=== PATIENT | male | born 1965 | race Caucasian/White ===

== ENCOUNTER 2017-02-21 18:22 | Emergency (ER) | payer BC ==
[2017-02-21 18:30] VITALS: BP 139/81; PULSE 75; O2SAT 97
--- NOTE | 2017-02-21 18:52 | ERPHSYRPT ---
- History of Present Illness Time Seen by Provider: 02/21/17 18:47 Source: patient Exam Limitations: no limitations Patient Subjective Stated Complaint: productive cough Triage Nursing Assessment: yellow productive cough for 3 days. no fever. clear nasal drainage. generalized body aches. bilat ear 'fullness' lungs clear Physician History: pt is 51 year old male with 5 day history of productive cough, exposed to pneumonia by other family member, declines flu and strep swabs and x-ray after discussion and this is reasonable; lungs with some upper air sounds , no N or V pt wishes to proceed with ab after risk and benefit discussion. Timing/Duration: day(s) Cough Quality/Degree: moderate, productive cough, sputum Possible Cause: no prior episodes Modifying Factors: Improves With: coughing Associated Symptoms: cough, nasal drainage, sinus infection, sore throat International travel in last 2 weeks: No Allergies/Adverse Reactions: No Known Drug Allergies Allergy (Verified 02/21/17 18:29) Home Medications: Metformin HCl 500 mg [Glucophage 500 MG] 1,000 mg PO BID 02/26/14 [History ] Aspirin 81 mg PO DAILY 02/21/17 [History] Lisinopril/Hydrochlorothiazide [Lisinopril-Hctz 20-12.5 mg Tab] 1 each PO DAILY 02/21/17 [History] Ranitidine HCl 75 mg PO BID 02/21/17 [History] Hx Tetanus, Diphtheria Vaccination/Date Given: Yes Hx Influenza Vaccination/Date Given: No Hx Pneumococcal Vaccination/Date Given: No Immunizations Up to Date: Yes - Review of Systems Constitutional: No Fever, No Chills Eyes: No Symptoms Ears, Nose, & Throat: No Symptoms Respiratory: Cough, No Dyspnea, No Dyspnea on Exertion ([place]), No Stridor, No Wheezing Cardiac: No Chest Pain, No Edema, No Syncope, No Orthopnea, No PND Abdominal/Gastrointestinal: No Abdominal Pain, No Nausea, No Vomiting, No Diarrhea Genitourinary Symptoms: No Dysuria Musculoskeletal: Myalgias (mild not like flu per pt. ), No Back Pain, No Neck Pain Skin: No Rash Neurological: No Dizziness, No Focal Weakness, No Sensory Changes Psychological: No Symptoms Endocrine: No Symptoms All Other Systems: Reviewed and Negative - Past Medical History Pertinent Past Medical History: Yes Neurological History: No Pertinent History ENT History: No Pertinent History Cardiac History: Hypertension Respiratory History: No Pertinent History Endocrine Medical History: Diabetes Type II Musculoskeletal History: No Pertinent History GI Medical History: No Pertinent History History: No Pertinent History Psycho-Social History: No Pertinent History Male Reproductive Disorders: No Pertinent History Other Medical History: KIDNEY STONE - Past Surgical History Past Surgical History: Yes Neuro Surgical History: No Pertinent History Cardiac: No Pertinent History Respiratory: No Pertinent History Gastrointestinal: Cholecystectomy Genitourinary: No Pertinent History Musculoskeletal: Orthopedic Surgery Male Surgical History: No Pertinent History Other Surgical History: bone spur in lower right leg - Social History Smoking Status: Smoker, status unknown How long have you smoked: 30 Exposure to second hand smoke: No Drug Use: none Patient Lives Alone: No Significant Family History: heart disease - Nursing Vital Signs Nursing Vital Signs: Initial Vital Signs Temperature 98.6 F Temperature Source Oral Pulse Rate 75 Respiratory Rate 18 Blood Pressure [Right Arm] 139/81 Pain Intensity 0 - Physical Exam General Appearance: no apparent distress, alert Eye Exam: PERRL/EOMI, eyes nml inspection Ears, Nose, Throat Exam: normal ENT inspection, TMs normal, pharynx normal, moist mucous membranes Neck Exam: normal inspection, non-tender, supple, full range of motion Respiratory Exam: normal breath sounds, lungs clear, airway intact, No respiratory distress, No diminished breath sounds, No accessory muscle use, No crackles/rales, No rhonchi, No wheezing, No stridor Cardiovascular Exam: regular rate/rhythm, normal heart sounds Gastrointestinal/Abdomen Exam: soft, No tenderness Rectal Exam: not done Back Exam: normal inspection, No CVA tenderness, No vertebral tenderness Extremity Exam: normal inspection, normal range of motion Neurologic Exam: alert, oriented x 3, cooperative, normal mood/affect, sensation nml, No motor deficits Skin Exam: normal color, warm, dry, No rash Lymphatic Exam: No adenopathy SpO2: 97 Oxygen Delivery: Room Air - Course Nursing assessment & vital signs reviewed: Yes - Progress Progress: improved Air Movement: good Blood Culture(s) Obtained: No Antibiotics given: Yes Counseled pt/family regarding: diagnosis, need for follow-up - Departure Time of Disposition: 18:51 Departure Disposition: Home Clinical Impression: Pharyngitis, Sinusitis, acute, URI bronchitis Condition: Good Critical Care Time: No Instructions: Cough -- Adult, Strep Throat, Sinusitis, Bronchitis, Pneumonia - - Adult Additional Instructions: We will start antibiotics to cover for strep and possible early pneumonia or pneumonitis, which will also help with sinus infections. Followup with your Dr. , especially if cough continues or not improving and return meantime if vomiting, short of breath or other concerns. Prescriptions: Azithromycin 250 mg [Zithromax 250 MG TABLET] 250 mg PO ZPACK #6 tablet
[2017-02-21] MEDS ORDERED: Zithromax 250 MG TABLET PO ONE (18:58)
[2017-02-21] MEDS ORDERED: Zithromax 250 MG TABLET ONE (19:05)
== END 2017-02-21 19:25 | disposition home or self-care (01) ==
LOC: ED 18:22
DX: J02.9 Acute pharyngitis, unspecified (principal); J32.9 Chronic sinusitis, unspecified; J06.9 Acute upper respiratory infection, unspecified; J40 Bronchitis, not specified as acute or chronic; R05 Cough
CPT/HCPCS: 99283; A9270-GY

== ENCOUNTER 2019-03-02 21:35 | Emergency (ER) | payer BC ==
--- NOTE | 2019-03-02 21:38 | ERPHSYRPT ---
- History of Present Illness Time Seen by Provider: 03/02/19 21:37 Historian: patient, family Exam Limitations: no limitations Physician History: 53 y/o white male presents with cp, substernal without radiation. began this afternoon. pt took his prilosec. pt denies cp at this time. pt has never had an upper endoscopy and has a stress test scheduled. no soa. Timing/Duration: today Activities at Onset: none Quality: pressure, tightness Location: substernal Chest Pain Radiation: no radiation Severity of Pain-Max: mild Severity of Pain-Current: none Modifying Factors: Improves With: other (prilosec) Associated Symptoms: denies symptoms, No nausea, No shortness of breath, No cough, No back pain Prior Chest Pain/Cardiac Workup: no prior chest pain Nitro Today/Relief: no nitro taken today Aspirin Treatment Today: no aspirin today Allergies/Adverse Reactions: No Known Drug Allergies Allergy (Verified 02/21/17 18:29) Home Medications: Metformin HCl 500 mg [Glucophage 500 MG] 1,000 mg PO DAILY 02/26/14 [ History] Aspirin 81 mg PO DAILY 02/21/17 [History] Lisinopril/Hydrochlorothiazide [Lisinopril-Hctz 20-12.5 mg Tab] 1 each PO DAILY 02/21/17 [History] Atorvastatin Calcium [Lipitor] 40 mg PO DAILY 03/02/19 [History] Metformin HCl 500 mg [Glucophage 500 MG] 500 mg PO DAILY 03/02/19 [History ] Hx Tetanus, Diphtheria Vaccination/Date Given: Yes Hx Influenza Vaccination/Date Given: No Hx Pneumococcal Vaccination/Date Given: No - Review of Systems Constitutional: No Symptoms Eyes: No Symptoms Ears, Nose, & Throat: No Symptoms Respiratory: No Symptoms Cardiac: Chest Pain Abdominal/Gastrointestinal: No Symptoms Genitourinary Symptoms: No Symptoms Musculoskeletal: No Symptoms Skin: No Symptoms Neurological: No Symptoms Psychological: No Symptoms Endocrine: No Symptoms All Other Systems: Reviewed and Negative - Past Medical History Pertinent Past Medical History: Yes Neurological History: No Pertinent History ENT History: No Pertinent History Cardiac History: Hypertension Respiratory History: No Pertinent History Endocrine Medical History: Diabetes Type II Musculoskeletal History: No Pertinent History GI Medical History: No Pertinent History History: No Pertinent History Psycho-Social History: No Pertinent History Male Reproductive Disorders: No Pertinent History Other Medical History: KIDNEY STONE - Past Surgical History Past Surgical History: Yes Neuro Surgical History: No Pertinent History Cardiac: No Pertinent History Respiratory: No Pertinent History Gastrointestinal: Cholecystectomy Genitourinary: No Pertinent History Musculoskeletal: Orthopedic Surgery Male Surgical History: No Pertinent History Other Surgical History: bone spur in lower right leg - Social History Smoking Status: Smoker, status unknown How long have you smoked: 30 Exposure to second hand smoke: No Drug Use: none Patient Lives Alone: No Significant Family History: heart disease - Nursing Vital Signs Nursing Vital Signs: Initial Vital Signs Temperature 98.1 F 03/02/19 22:02 Pulse Rate 74 03/02/19 22:02 Respiratory Rate 20 03/02/19 22:02 Blood Pressure 174/106 03/02/19 22:02 O2 Sat by Pulse Oximetry 98 03/02/19 22:02 Pain Scale Pain Intensity 5 - Physical Exam General Appearance: no apparent distress, alert, anxiety Eye Exam: PERRL/EOMI, eyes nml inspection Ears, Nose, Throat Exam: normal ENT inspection, moist mucous membranes Neck Exam: normal inspection, non-tender, supple, full range of motion Respiratory Exam: normal breath sounds, chest tenderness, lungs clear, airway intact, No respiratory distress Cardiovascular Exam: regular rate/rhythm, normal heart sounds, normal peripheral pulses Gastrointestinal/Abdomen Exam: soft, normal bowel sounds, No tenderness, No guarding, No rebound Rectal Exam: not done Back Exam: normal inspection, normal range of motion, No CVA tenderness, No vertebral tenderness Extremity Exam: normal inspection, normal range of motion, pelvis stable Neurologic Exam: alert, oriented x 3, cooperative, deputy chief magistrate II-XII nml as tested Skin Exam: normal color, warm, dry Lymphatic Exam: No adenopathy SpO2 Interpretation: normal O2 Delivery: Room Air - Course Nursing assessment & vital signs reviewed: Yes EKG Interpreted by Me: RATE (79), Sinus Rhythm, NORMAL AXIS, NORMAL INTERVALS, NORMAL QRS, Other (same as comparison ekg at 06/21/15) Ordered Tests: Active Orders 24 hr Category Date Time Status CHEST 1 VIEW (PORTABLE) Stat Exams 03/02/19 21:47 Taken CBC W DIFF Stat Lab 03/02/19 21:50 Completed CMP Stat Lab 03/02/19 21:50 Completed D-DIMER QUANTITATION Stat Lab 03/02/19 21:50 Completed NT PRO BNP Stat Lab 03/02/19 21:50 Completed PROTIME WITH INR Stat Lab 03/02/19 21:50 Completed TROPONIN Q3H Lab 03/02/19 21:50 Completed TROPONIN Q3H Lab 03/03/19 01:00 Completed TROPONIN Q3H Lab 03/03/19 04:00 Ordered TROPONIN Q3H Lab 03/03/19 07:00 Ordered TROPONIN Q3H Lab 03/03/19 10:00 Ordered Medication Summary Discontinued Medications Generic Name Dose Route Start Last Admin Trade Name Shannon PRN Reason Stop Dose Admin Aspirin 324 mg 03/02/19 21:48 03/03/19 00:07 Baby Aspirin 81 Mg Chew PO 03/02/19 21:49 324 mg STAT ONE Administration Aspirin Confirm 03/03/19 00:06 Baby Aspirin 81 Mg Chew Administered 03/03/19 00:07 Dose 324 mg .ROUTE .QMedic ONE Lab/Rad Data: Laboratory Result Diagrams 03/02/19 21:50 03/02/19 21:50 Laboratory Results 03/03/19 03/02/19 03/02/19 Range/Units 01:00 21:50 21:50 WBC (4.0-10.5) K/mm3 RBC (4.1-5.6) M/mm3 Hgb (12.5-18.0) gm/dl Hct (42-50) % MCV (78-100) fl MCH (26-32) pg MCHC (32-36) g/dl RDW (11.5-14.0) % Plt Count (150-450) K/mm3 MPV (6-9.5) fl Gran % (36.0-66.0) % Eos # (Auto) (0-0.5) Absolute Lymphs (auto) (1.0-4.6) Absolute Monos (auto) (0.0-1.3) Lymphocytes % (24.0-44.0) % Monocytes % (0.0-12.0) % Eosinophils % (0.00-5.0) % Basophils % (0.0-0.4) % Absolute Granulocytes (1.4-6.9) Basophils # (0-0.4) PT 11.1 (8.83-12.87) SECONDS INR 0.95 (0.8-3.0) D-Dimer 267 (215-500) ng/mL Sodium (137-145) mmol/L Potassium (3.5-5.1) mmol/L Chloride (98-107) mmol/L Carbon Dioxide (22-30) mmol/L Anion Gap (5-15) MEQ/L BUN (9-20) mg/dL Creatinine (0.66-1.25) mg/dL Estimated GFR ML/MIN Glucose (74-106) mg/dL Calcium (8.4-10.2) mg/dL Total Bilirubin (0.2-1.3) mg/dL AST (17-59) U/L ALT (0-50) U/L Alkaline Phosphatase (38-126) U/L Troponin I < 0.012 < 0.012 (0.000-0.034) ng/mL NT-Pro-B Natriuret Pep (0-900) pg/mL Serum Total Protein (6.3-8.2) g/dL Albumin (3.5-5.0) g/dL 03/02/19 03/02/19 Range/Units 21:50 21:50 WBC 8.7 (4.0-10.5) K/mm3 RBC 4.64 (4.1-5.6) M/mm3 Hgb 13.4 (12.5-18.0) gm/dl Hct 38.3 L (42-50) % MCV 82.5 (78-100) fl MCH 28.9 (26-32) pg MCHC 35.0 (32-36) g/dl RDW 13.1 (11.5-14.0) % Plt Count 209 (150-450) K/mm3 MPV 9.7 H (6-9.5) fl Gran % 54.1 (36.0-66.0) % Eos # (Auto) 0.15 (0-0.5) Absolute Lymphs (auto) 3.19 (1.0-4.6) Absolute Monos (auto) 0.63 (0.0-1.3) Lymphocytes % 36.7 (24.0-44.0) % Monocytes % 7.2 (0.0-12.0) % Eosinophils % 1.7 (0.00-5.0) % Basophils % 0.3 (0.0-0.4) % Absolute Granulocytes 4.69 (1.4-6.9) Basophils # 0.03 (0-0.4) PT (8.83-12.87) SECONDS INR (0.8-3.0) D-Dimer (215-500) ng/mL Sodium 140 (137-145) mmol/L Potassium 3.6 (3.5-5.1) mmol/L Chloride 102 (98-107) mmol/L Carbon Dioxide 25 (22-30) mmol/L Anion Gap 16.8 H (5-15) MEQ/L BUN 20 (9-20) mg/dL Creatinine 0.79 (0.66-1.25) mg/dL Estimated GFR > 60.0 ML/MIN Glucose 137 H (74-106) mg/dL Calcium 9.5 (8.4-10.2) mg/dL Total Bilirubin 0.70 (0.2-1.3) mg/dL AST 22 (17-59) U/L ALT 22 (0-50) U/L Alkaline Phosphatase 60 (38-126) U/L Troponin I (0.000-0.034) ng/mL NT-Pro-B Natriuret Pep 14.6 (0-900) pg/mL Serum Total Protein 7.2 (6.3-8.2) g/dL Albumin 4.3 (3.5-5.0) g/dL - Progress Progress: improved, re-examined Air Movement: good Progress Note: 03/03/19 02:17 cxr-no acute process Counseled pt/family regarding: lab results, diagnosis, need for follow-up, rad results - Departure Departure Disposition: Home Clinical Impression: Chest pain Condition: Stable Critical Care Time: No Referrals: NERIS RAMOS [Primary Care Provider] - Additional Instructions: avoid fatty, greasy, spicy foods. keep your stress test appointment. follow up with primary doctor for further management including upper endoscopy if indicated.
[2019-03-02] MEDS ORDERED: BABY ASPIRIN 81 MG CHEW PO ONE (21:48)
[2019-03-02 22:05] LABS: BASOPHIL % 0.3 % (0.0-0.4); Basophil (Absolute #) 0.03 (0-0.4); Eosinophil % 1.7 % (0.00-5.0); Eosinophil (Absolute #) 0.15 (0-0.5); Granulocyte Absolute (ANC) 4.69 (1.4-6.9); Granulocytes % 54.1 % (36.0-66.0); Hematocrit 38.3 % (42-50); Hemoglobin 13.4 gm/dl (12.5-18.0); Lymphocyte (Absolute #) 3.19 (1.0-4.6); Lymphocytes % 36.7 % (24.0-44.0); Mean Cell Volume 82.5 fl (78-100); Mean Corpuscular Hemoglobin 28.9 pg (26-32); Mean Platelet Volume 9.7 fl (6-9.5); Monocyte (Absolute #) 0.63 (0.0-1.3); Monocytes % 7.2 % (0.0-12.0); Platelet Count 209 K/mm3 (150-450); Red Blood Count 4.64 M/mm3 (4.1-5.6); Red Cell Distribution Width 13.1 % (11.5-14.0); White Blood Count 8.7 K/mm3 (4.0-10.5)
[2019-03-02 22:15] LABS: INR 0.95 (0.8-3.0); PROTIME 11.1 SECONDS (8.83-12.87)
[2019-03-02 22:29] LABS: ALBUMIN 4.3 g/dL (3.5-5.0); ALKALINE PHOSPHATASE 60 U/L (38-126); ANION GAP 16.8 MEQ/L (5-15); BLOOD UREA NITROGEN 20 mg/dL (9-20); CHLORIDE 102 mmol/L (98-107); Calcium 9.5 mg/dL (8.4-10.2); Carbon Dioxide 25 mmol/L (22-30); Creatinine 1 0.79 mg/dL (0.66-1.25); Glucose 137 mg/dL (74-106); NT PRO BNP 14.6 pg/mL (0-900); Potassium 3.6 mmol/L (3.5-5.1); SGOT/AST 22 U/L (17-59); SGPT/ALT 22 U/L (0-50); SODIUM 140 mmol/L (137-145); Total Protein 7.2 g/dL (6.3-8.2)
[2019-03-03] MEDS ORDERED: BABY ASPIRIN 81 MG CHEW ONE (00:06)
[2019-03-03 02:27] VITALS: BP 136/82; PULSE 75; O2SAT 97
--- NOTE | 2019-03-03 09:10 | XRAY ---
Indication: Chest pain. Comparison: February 26, 2014. Portable chest is clear. Heart and mediastinal structures within normal limits for AP portable technique. Bony thorax intact again with mild degenerative changes. Impression: Nonacute chest.
== END 2019-03-03 02:35 | disposition home or self-care (01) ==
LOC: ED 21:35
DX: R07.89 Other chest pain (principal); I10 Essential (primary) hypertension
CPT/HCPCS: 36415; 71045; 80053; 83880; 84484; 85025; 85379; 85610; 99284; A9270-GY

== ENCOUNTER 2020-01-15 17:06 | Emergency (ER) | payer BC ==
[2020-01-15 17:22] VITALS: BP 146/105; PULSE 96; O2SAT 99
[2020-01-15] MEDS ORDERED: SUBLIMAZE 100 MCG/2 ML IM ONE (17:24)
[2020-01-15] MEDS ORDERED: Phenergan 25 MG INJ IM ONE (17:24)
--- NOTE | 2020-01-15 17:30 | ERPHSYRPT ---
- History of Present Illness Time Seen by Provider: 01/15/20 17:20 Source: patient Exam Limitations: no limitations Patient Subjective Stated Complaint: Back pain Triage Nursing Assessment: Patient ambulated back to ED with a slow gait. Patient A+O X3. Patient's skin pink, warm and dry. Patient complains of right sided lower back pain. Patient states the pain started 3 weeks ago after doing yard work and lifting mulch. Patient states pain got better but flared up Thursday after mowing. Patient complains of constant aching with intermittent sharp pain 03/14. Physician History: Three weeks ago pt was lifting 30# bags of mulch and bending over planting [place] at home after which he started with right lower back pain upon movement. This pain flared up 2 days ago after mowing. Pt denies nausea, vomiting, abdominal pain, chest pain, shortness of air, tingling/numbness/ weakness of extremities. Allergies/Adverse Reactions: No Known Drug Allergies Allergy (Verified 01/15/20 17:22) Home Medications: Metformin HCl 500 mg [Glucophage 500 MG] 1,000 mg PO DAILY 02/26/14 [ History] Aspirin 81 mg PO DAILY 02/21/17 [History] Lisinopril/Hydrochlorothiazide [Lisinopril-Hctz 20-12.5 mg Tab] 1 each PO DAILY 02/21/17 [History] Atorvastatin Calcium [Lipitor] 40 mg PO DAILY 03/02/19 [History] Hx Tetanus, Diphtheria Vaccination/Date Given: Yes Hx Influenza Vaccination/Date Given: No Hx Pneumococcal Vaccination/Date Given: No Immunizations Up to Date: Yes Travel Risk - International Travel Have you traveled outside of the country in past 3 weeks: No Have you or anyone close to you been diagnosed with or: No Do your reside in a community with a known COVID-19 case?: Yes If Yes where:: [facility] - Coronavirus Screening Has patient experienced Coronavirus symptoms: No - Review of Systems Constitutional: No Fever Respiratory: No Dyspnea Cardiac: No Chest Pain Abdominal/Gastrointestinal: No Abdominal Pain, No Nausea, No Vomiting Musculoskeletal: Back Pain Skin: No Rash Neurological: No Focal Weakness, No Headache, No Sensory Changes All Other Systems: Reviewed and Negative - Past Medical History Pertinent Past Medical History: Yes Neurological History: No Pertinent History ENT History: No Pertinent History Cardiac History: Hypertension Respiratory History: No Pertinent History Endocrine Medical History: Diabetes Type II Musculoskeletal History: No Pertinent History GI Medical History: No Pertinent History History: No Pertinent History Psycho-Social History: No Pertinent History Male Reproductive Disorders: No Pertinent History Other Medical History: KIDNEY STONE - Past Surgical History Past Surgical History: Yes Neuro Surgical History: No Pertinent History Cardiac: No Pertinent History Respiratory: No Pertinent History Gastrointestinal: Cholecystectomy Genitourinary: No Pertinent History Musculoskeletal: Orthopedic Surgery Male Surgical History: No Pertinent History Other Surgical History: bone spur in lower right leg - Social History Smoking Status: Never smoker How long have you smoked: 30 Exposure to second hand smoke: No Drug Use: none Patient Lives Alone: No Significant Family History: heart disease - Nursing Vital Signs Nursing Vital Signs: Initial Vital Signs Temperature 98.3 F 01/15/20 17:14 Pulse Rate 96 H 01/15/20 17:14 Respiratory Rate 18 01/15/20 17:14 Blood Pressure 146/105 01/15/20 17:14 O2 Sat by Pulse Oximetry 99 01/15/20 17:14 Pain Scale Pain Intensity 6 - Physical Exam General Appearance: alert Eye Exam: PERRL/EOMI Ears, Nose, Throat Exam: TMs normal, pharynx normal Neck Exam: normal inspection Respiratory Exam: lungs clear Cardiovascular Exam: normal heart sounds Gastrointestinal Exam: soft, normal bowel sounds Back Exam: other (right lower back pain upon movement.), No vertebral tenderness Extremity Exam: normal range of motion, No pedal edema Peripheral Pulses: dorsalis-pedis (R): 2+, dorsalis-pedis (L): 2+ Neurologic Exam: sensation nml, No motor deficits Skin Exam: warm, dry SpO2 Interpretation: normal SpO2: 99 O2 Delivery: Room Air - Course Nursing assessment & vital signs reviewed: Yes Ordered Tests: Medication Summary Generic Name Dose Route Start Last Admin Trade Name Freq PRN Reason Stop Dose Admin Fentanyl Citrate 100 mcg 01/15/20 17:24 Sublimaze 100 Mcg/2 Ml IM 01/15/20 17:25 STAT ONE Promethazine HCl 25 mg 01/15/20 17:24 Phenergan 25 Mg Inj IM 01/15/20 17:25 STAT ONE - Progress Progress: unchanged - Departure Departure Disposition: Home Clinical Impression: Low back strain Condition: Stable Critical Care Time: No Referrals: NERIS RAMOS [Primary Care Provider] - Instructions: Low Back Pain (DC) Additional Instructions: Follow up with private doctor tomorrow. Avoid lifting, bending and twisting torso. Forms: Work/School Release Form Prescriptions: Naproxen [Naprosyn] 500 mg PO [id number] PRN #20 tablet PRN Reason: Pain Cyclobenzaprine HCl [Flexeril] 10 mg PO TID PRN #21 tablet
[2020-01-15] MEDS ORDERED: Phenergan 25 MG INJ ONE (17:31)
[2020-01-15] MEDS ORDERED: SUBLIMAZE 100 MCG/2 ML ONE (17:31)
== END 2020-01-15 17:50 | disposition home or self-care (01) ==
LOC: ED 17:06
DX: S39.012A Strain of muscle, fascia and tendon of lower back, initial encounter (principal); I10 Essential (primary) hypertension; E11.9 Type 2 diabetes mellitus without complications; X50.0XXA Overexertion from strenuous movement or load, initial encounter; X50.9XXA Other and unspecified overexertion or strenuous movements or postures, initial encounter; Y93.H2 Activity, gardening and landscaping; Y92.9 Unspecified place or not applicable
CPT/HCPCS: 96372; 99283; J2550; J3010

== ENCOUNTER 2020-07-26 06:19 | Day surgery (SDC) | payer BC ==
--- NOTE | 2020-07-20 09:50 | HP ---
DATE OF SURGERY: 07/26/2020 HISTORY OF PRESENT ILLNESS: The patient presented in need of colonoscopy. He has had no colonoscopy to date. He denies any GI signs or symptoms at this time. He denies any family history of colon cancer. He states he does have some reflux and bloating. PAST MEDICAL HISTORY: Diabetes. Hypertension. Hyperlipidemia. Reflux. PAST SURGICAL HISTORY: Cholecystectomy. Bone spur removal. ALLERGIES: NKDA. MEDICATIONS: Metformin, Simvastatin, omeprazole, Pepcid. FAMILY HISTORY: Dad with prostate cancer. Heart disease and hypertension. SOCIAL HISTORY: Smokes an E-cigarette, denies alcohol. REVIEW OF SYSTEMS: CONSTITUTIONAL: No fever or chills. CHEST: Denies shortness of breath. CVS: Denies chest pain. ABDOMEN: Reports epigastric pain. Denies nausea, vomiting, diarrhea, constipation or rectal bleeding. INTEGUMENTARY: Negative. PHYSICAL EXAMINATION: GENERAL: No acute distress. CHEST: Nonlabored. No shortness of breath. CVS: Regular rate and rhythm. ABDOMEN: Soft, tender in the mid epigastric area. EXTREMITIES: No edema. NEUROLOGIC: Alert. PSYCHIATRIC: Appropriate. IMPRESSION: Epigastric pain and bloating as well as screening. No prior colonoscopy. PLAN: EGD and colonoscopy with Dr. Christ Ribeiro. As dictated by Laureen Perez NP.
[~2020-07-26 06:19] MED LIST: DIPRIVAN 200 MG/20 ML IV ONE; Xylocaine-Mpf 2% 5 Ml Vial ONE
[2020-07-26] MEDS ORDERED: Lactated Ringers 1,000 ML IV SCH (06:30)
[2020-07-26 10:22] VITALS: BP 129/88; PULSE 78; O2SAT 98
--- NOTE | 2020-07-26 12:14 | OP ---
SURGERY DATE/TIME: 07/26/2020 0908 PREOPERATIVE DIAGNOSES: 1) Epigastric pain. The patient has grade 2/3 gastroesophageal reflux disease otherwise normal. 2) Colon screening. Moderate sigmoid diverticulosis otherwise satisfactory. POSTOPERATIVE DIAGNOSES: 1) Epigastric pain. The patient has grade 2/3 gastroesophageal reflux disease otherwise normal. 2) Colon screening. Moderate sigmoid diverticulosis otherwise satisfactory. PROCEDURES: 1) EGD. 2) Colonoscopy complete to cecum. SURGEON: Christ Ribeiro M.D. ANESTHESIA: MAC. COMPLICATIONS: None. CONDITION: Stable. PREP SCORE: Excellent. WITHDRAWAL TIME: Six minutes. INDICATION: A patient requiring evaluation. DESCRIPTION OF PROCEDURE: Taken to endoscopy. Upper examination pharyngoesophageal junction normal. Esophagus normal. Gastroesophageal junction Grade 2/3 gastroesophageal reflux disease. No hiatal hernia. The fundus, body and antrum satisfactory. Pylorus satisfactory. Duodenal bulb satisfactory. Scope withdrawn. He did have 2/3 gastroesophageal reflux disease. He was placed on Protonix. Anal digital examination satisfactory. Scope advanced to the cecum. Fairly redundant colon but a normal colon base of the cecum, ileocecal valve, appendiceal orifice, ascending, hepatic, transverse, splenic, descending, sigmoid, rectum, anus. Moderate sigmoid diverticulosis otherwise normal. PLAN: Follow up in ten years for the lower scope.
== END 2020-07-26 10:34 | disposition home or self-care (01) ==
LOC: SDC 06:19
PROVIDERS: ATTEND Surgery
DX: K21.9 Gastro-esophageal reflux disease without esophagitis (principal); Z12.11 Encounter for screening for malignant neoplasm of colon; K57.30 Diverticulosis of large intestine without perforation or abscess without bleeding; E11.9 Type 2 diabetes mellitus without complications; I10 Essential (primary) hypertension; E78.5 Hyperlipidemia, unspecified
CPT/HCPCS: 82962; J2704

== ENCOUNTER 2020-11-30 10:12 | Emergency (ER) | payer BC ==
[2020-11-30] MEDS ORDERED: Sodium Chloride 0.9% 1000 ML 1,000 ML IV STA (10:29)
[2020-11-30] MEDS ORDERED: TORAdol 30 mg Injection IV ONE (10:29)
--- NOTE | 2020-11-30 10:29 | ERPHSYRPT ---
- History of Present Illness Time Seen by Provider: 11/30/20 10:25 Historian: patient Exam Limitations: no limitations Patient Subjective Stated Complaint: Pt states "I have a kidney stone on the left side. I have had several of them and this one hurts really bad." Triage Nursing Assessment: Pt presented alert and oriented X 3, skin pwd Pt ambulates with an upright steady gait, able to speak in clear full sentences. Pt holding his left side. Physician History: This is a 55-year-old diabetic gentleman with a history of hypertension and GERD who also is known to have multiple bilateral kidney stones. He has had several ureteral stone attacks. Most of which he has been able to pass the stone on his own. However, there was a single time where urologic intervention was required. Patient noticed of acute onset of left flank pain yesterday which was significant. It responded to Olympia x1 tablet. Later in the evening the pain recurred and he took another Olympia which brought the pain level down significantly. However, this morning at 9 AM he had severe, sudden onset of left flank pain again and took a Olympia. It was not letting up so he came to the emergency department. When he was in his emergency room bed the pain was letting up and again significantly improved. It is not completely resolved. He does feel nauseated. He has not noticed any hematuria. He has no chest pain he has no shortness of breath. Activities at Onset: none Quality: sharpness, stabbing Abdominal Pain Onset Location: flank (Left flank) Pain Radiation: groin (Left groin) Severity of Pain-Max: moderate Severity of Pain-Current: mild Modifying Factors: Improves With: analgesics Associated Symptoms: nausea, No chest pain, No diarrhea, No headache, No shortness of breath, No vomiting Previous symptoms: same symptoms as today Allergies/Adverse Reactions: No Known Drug Allergies Allergy (Verified 07/16/20 12:58) Home Medications: Metformin HCl 500 mg [Glucophage 500 MG] 1,000 mg PO BID 02/26/14 [History] Lisinopril/Hydrochlorothiazide [Lisinopril-Hctz 20-12.5 mg Tab] 10 - 12.5 each PO DAILY 02/21/17 [History] Ergocalciferol (Vitamin D2) [Vitamin D2] 1,250 mcg PO WEEKLY 07/16/20 [History] Famotidine 20 mg [Pepcid 20 MG] 20 mg PO DAILY 07/16/20 [History] Simvastatin 40 mg PO DAILY 07/16/20 [History] PANTOPRAZOLE 40 mg Tablet [Protonix 40MG Tablet] 40 mg PO DAILY 11/30/20 [History] Hx Tetanus, Diphtheria Vaccination/Date Given: No Hx Influenza Vaccination/Date Given: No Hx Pneumococcal Vaccination/Date Given: No Immunizations Up to Date: Yes Travel Risk - International Travel Have you traveled outside of the country in past 3 weeks: No - Coronavirus Screening Are you exhibiting any of the following symptoms?: No Close contact with a COVID-19 positive Pt in past 14-21 Days: No - Review of Systems Constitutional: No Symptoms Eyes: No Symptoms Ears, Nose, & Throat: No Symptoms Respiratory: No Symptoms Cardiac: No Symptoms Abdominal/Gastrointestinal: Nausea Genitourinary Symptoms: Flank Pain (Left) Musculoskeletal: No Symptoms Skin: No Symptoms Neurological: No Symptoms Psychological: No Symptoms Endocrine: No Symptoms Hematologic/Lymphatic: No Symptoms Immunological/Allergic: No Symptoms All Other Systems: Reviewed and Negative - Past Medical History Pertinent Past Medical History: Yes Neurological History: No Pertinent History ENT History: No Pertinent History Cardiac History: Hypertension Respiratory History: No Pertinent History Endocrine Medical History: Diabetes Type II Musculoskeletal History: No Pertinent History GI Medical History: No Pertinent History History: No Pertinent History Psycho-Social History: No Pertinent History Male Reproductive Disorders: No Pertinent History Other Medical History: KIDNEY STONE - Past Surgical History Past Surgical History: Yes Neuro Surgical History: No Pertinent History Cardiac: No Pertinent History Respiratory: No Pertinent History Gastrointestinal: Cholecystectomy Genitourinary: No Pertinent History Musculoskeletal: Orthopedic Surgery Male Surgical History: No Pertinent History Other Surgical History: bone spur in lower right leg - Social History Smoking Status: Never smoker How long have you smoked: 30 Exposure to second hand smoke: No Drug Use: none Patient Lives Alone: No Significant Family History: heart disease - Nursing Vital Signs Nursing Vital Signs: Initial Vital Signs Temperature 97.5 F 11/30/20 10:19 Pulse Rate 77 11/30/20 10:19 Respiratory Rate 20 11/30/20 10:19 Blood Pressure 186/113 11/30/20 10:19 O2 Sat by Pulse Oximetry 99 11/30/20 10:19 Pain Scale Pain Intensity 2 - Physical Exam General Appearance: mild distress, alert, anxiety Eye Exam: PERRL/EOMI, eyes nml inspection Ears, Nose, Throat Exam: normal ENT inspection, moist mucous membranes Neck Exam: normal inspection, non-tender, supple, full range of motion Respiratory Exam: normal breath sounds, lungs clear, airway intact, No chest tenderness, No respiratory distress Cardiovascular Exam: regular rate/rhythm, normal heart sounds, normal peripheral pulses Gastrointestinal/Abdomen Exam: soft, normal bowel sounds, No tenderness, No guarding Rectal Exam: not done Back Exam: normal inspection, normal range of motion, CVA tenderness (Left), No vertebral tenderness Extremity Exam: normal inspection, normal range of motion, pelvis stable Neurologic Exam: alert, oriented x 3, cooperative, local driver II-XII nml as tested, normal mood/affect, nml cerebellar function, nml station & gait, sensation nml Skin Exam: normal color, warm, dry Lymphatic Exam: No adenopathy SpO2 Interpretation: normal SpO2: 99 O2 Delivery: Room Air - Course Nursing assessment & vital signs reviewed: Yes Ordered Tests: Active Orders 24 hr Category Date Time Status IV Insertion STAT Care 11/30/20 10:29 Active ABDOMEN AND PELVIS W/0 CONTRAS [CT] Stat Exams 11/30/20 10:29 Completed AMYLASE Stat Lab 11/30/20 10:44 Completed CBC W DIFF Stat Lab 11/30/20 10:44 Completed CMP Stat Lab 11/30/20 10:44 Completed LIPASE Stat Lab 11/30/20 10:44 Completed Lactic Acid Stat Lab 11/30/20 10:29 Completed UA W/RFX UR CULTURE Stat Lab 11/30/20 11:05 Completed Medication Summary Discontinued Medications Generic Name Dose Route Start Last Admin Trade Name Freq PRN Reason Stop Dose Admin Sodium Chloride 1,000 mls @ 999 mls/hr 11/30/20 10:29 11/30/20 11:51 Sodium Chloride 0.9% 1000 Ml IV 11/30/20 11:29 Infused .Q1H1M STA Infusion Sodium Chloride Confirm 11/30/20 10:34 Sodium Chloride 0.9% 1000 Ml Administered 11/30/20 10:35 Dose 1,000 mls @ ud .ROUTE .STK-MED ONE Ketorolac Tromethamine 30 mg 11/30/20 10:29 11/30/20 10:35 Toradol 30 Mg Injection IV 11/30/20 10:30 30 mg STAT ONE Administration Ketorolac Tromethamine Confirm 11/30/20 10:34 Toradol 30 Mg Injection Administered 11/30/20 10:35 Dose 30 mg .ROUTE .STK-MED ONE Ondansetron HCl 4 mg 11/30/20 10:36 11/30/20 10:39 Zofran 4 Mg/2 Ml Vial IV 11/30/20 10:37 4 mg STAT ONE Administration Ondansetron HCl Confirm 11/30/20 10:36 Zofran 4 Mg/2 Ml Vial Administered 11/30/20 10:37 Dose 4 mg .ROUTE .STK-MED ONE Lab/Rad Data: Laboratory Result Diagrams 11/30/20 10:44 11/30/20 10:44 Laboratory Results 11/30/20 11/30/20 11/30/20 Range/Units 11:05 10:44 10:44 WBC 8.5 (4.0-10.5) K/mm3 RBC 5.11 (4.1-5.6) M/mm3 Hgb 14.2 (12.5-18.0) gm/dl Hct 43.1 (42-50) % MCV 84.3 (78-100) fl MCH 27.8 (26-32) pg MCHC 32.9 (32-36) g/dl RDW 12.6 (11.5-14.0) % Plt Count 218 (150-450) K/mm3 MPV 9.7 (7.5-11.0) fl Gran % 67.2 H (36.0-66.0) % Eos # (Auto) 0.06 (0-0.5) Absolute Lymphs (auto) 2.12 (1.0-4.6) Absolute Monos (auto) 0.55 (0.0-1.3) Lymphocytes % 25.0 (24.0-44.0) % Monocytes % 6.5 (0.0-12.0) % Eosinophils % 0.7 (0.00-5.0) % Basophils % 0.6 (0.0-0.4) % Absolute Granulocytes 5.69 (1.4-6.9) Basophils # 0.05 (0-0.4) Sodium 138 (137-145) mmol/L Potassium 4.4 (3.5-5.1) mmol/L Chloride 100 (98-107) mmol/L Carbon Dioxide 27 (22-30) mmol/L Anion Gap 15.6 H (5-15) MEQ/L BUN 19 (9-20) mg/dL Creatinine 1.03 (0.66-1.25) mg/dL Estimated GFR > 60.0 ML/MIN Glucose 174 H (74-106) mg/dL Lactic Acid (0.4-2.0) Calcium 9.7 (8.4-10.2) mg/dL Total Bilirubin 0.70 (0.2-1.3) mg/dL AST 29 (17-59) U/L ALT 30 (0-50) U/L Alkaline Phosphatase 50 (38-126) U/L Serum Total Protein 8.0 (6.3-8.2) g/dL Albumin 5.0 (3.5-5.0) g/dL Amylase 73 (30-110) U/L Lipase 112 (23-300) U/L Urine Color YELLOW (YELLOW) Urine Appearance SLIGHTLY CLOUDY (CLEAR) Urine pH 5.0 (5-6) Ur Specific Moro 1.023 (1.005-1.025) Urine Protein 30 (Negative) Urine Ketones TRACE (NEGATIVE) Urine Blood MODERATE (0-5) Agustin/ul Urine Nitrite NEGATIVE (NEGATIVE) Urine Bilirubin NEGATIVE (NEGATIVE) Urine Urobilinogen NEGATIVE (0-1) mg/dL Ur Leukocyte Esterase NEGATIVE (NEGATIVE) Urine WBC (Auto) 3-5 (0-5) /HPF Urine RBC (Auto) 16-25 (0-2) /HPF U Epithel Cells (Auto) NONE (FEW) /HPF Urine Bacteria (Auto) NONE SEEN (NEGATIVE) /HPF Urine Mucus (Auto) SLIGHT (NEGATIVE) /HPF Urine Culture Reflexed NO (NO) Urine Glucose NEGATIVE (NEGATIVE) mg/dL 11/30/20 Range/Units 10:29 WBC (4.0-10.5) K/mm3 RBC (4.1-5.6) M/mm3 Hgb (12.5-18.0) gm/dl Hct (42-50) % MCV (78-100) fl MCH (26-32) pg MCHC (32-36) g/dl RDW (11.5-14.0) % Plt Count (150-450) K/mm3 MPV (7.5-11.0) fl Gran % (36.0-66.0) % Eos # (Auto) (0-0.5) Absolute Lymphs (auto) (1.0-4.6) Absolute Monos (auto) (0.0-1.3) Lymphocytes % (24.0-44.0) % Monocytes % (0.0-12.0) % Eosinophils % (0.00-5.0) % Basophils % (0.0-0.4) % Absolute Granulocytes (1.4-6.9) Basophils # (0-0.4) Sodium (137-145) mmol/L Potassium (3.5-5.1) mmol/L Chloride (98-107) mmol/L Carbon Dioxide (22-30) mmol/L Anion Gap (5-15) MEQ/L BUN (9-20) mg/dL Creatinine (0.66-1.25) mg/dL Estimated GFR ML/MIN Glucose (74-106) mg/dL Lactic Acid 1.6 (0.4-2.0) Calcium (8.4-10.2) mg/dL Total Bilirubin (0.2-1.3) mg/dL AST (17-59) U/L ALT (0-50) U/L Alkaline Phosphatase (38-126) U/L Serum Total Protein (6.3-8.2) g/dL Albumin (3.5-5.0) g/dL Amylase (30-110) U/L Lipase (23-300) U/L Urine Color (YELLOW) Urine Appearance (CLEAR) Urine pH (5-6) Ur Specific Moro (1.005-1.025) Urine Protein (Negative) Urine Ketones (NEGATIVE) Urine Blood (0-5) Agustin/ul Urine Nitrite (NEGATIVE) Urine Bilirubin (NEGATIVE) Urine Urobilinogen (0-1) mg/dL Ur Leukocyte Esterase (NEGATIVE) Urine WBC (Auto) (0-5) /HPF Urine RBC (Auto) (0-2) /HPF U Epithel Cells (Auto) (FEW) /HPF Urine Bacteria (Auto) (NEGATIVE) /HPF Urine Mucus (Auto) (NEGATIVE) /HPF Urine Culture Reflexed (NO) Urine Glucose (NEGATIVE) mg/dL - Progress Progress: improved, pain not gone completely, re-examined Progress Note: 11/30/20 12:03 CAT scan of the abdomen pelvis without contrast shows a 5.5 mm distal left ureteral calculus. There is hydroureter present. Patient has multiple, bilateral renal calculi as well. Medical decision making: At this time the patient's pain is well controlled. I explained to him that I could not guarantee that he would pass this 5.5 mm d istal left ureteral stone. I told him it is possible. He needs to continue drinking plenty of fluids, using ibuprofen, Flomax I will prescribe him, and Olympia pain medication. The stone is in the distal left ureter just proximal to the ureteral vesicular junction. I explained to him that if his symptoms worsen he can always return to this emergency department but he may also go to [facility] that has a urologist on staff. He has opted for discharge to home. Counseled pt/family regarding: diagnosis, need for follow-up, rad results - Departure Departure Disposition: Home Clinical Impression: Left ureteral stone Condition: Stable Critical Care Time: No Referrals: NERIS MONTALVO [Primary Care Provider] - Additional Instructions: Drink plenty of fluids. Take ibuprofen 600 mg 3 times a day with food for the next 5 days. Follow-up with your urologist for further management. Return to the emergency department if symptoms worsen. Prescriptions: Hydrocodone/APAP 5/325 [Olympia 5/325 mg] 1 each PO Q8H PRN PRN #6 tablet MDD 3 PRN Reason: Pain Tamsulosin HCl 0.4 mg [Flomax 0.4 MG] 0.4 mg PO DAILY #7 cap
[2020-11-30] MEDS ORDERED: Sodium Chloride 0.9% 1000 ML 1,000 ML ONE (10:34)
[2020-11-30] MEDS ORDERED: TORAdol 30 mg Injection ONE (10:34)
[2020-11-30] MEDS ORDERED: Zofran 4 MG/2 ML VIAL IV ONE (10:36)
[2020-11-30] MEDS ORDERED: Zofran 4 MG/2 ML VIAL ONE (10:36)
[2020-11-30 10:47] LABS: Absolute Neutrophil Ct (ANC) 5.69 (1.4-6.9); BASOPHIL % 0.6 % (0.0-0.4); Basophil (Absolute #) 0.05 (0-0.4); Eosinophil % 0.7 % (0.00-5.0); Eosinophil (Absolute #) 0.06 (0-0.5); Hematocrit 43.1 % (42-50); Hemoglobin 14.2 gm/dl (12.5-18.0); Lymphocyte (Absolute #) 2.12 (1.0-4.6); Mean Cell Volume 84.3 fl (78-100); Mean Corpuscular Hemoglobin 27.8 pg (26-32); Mean Corpuscular Hgb Concent. 32.9 g/dl (32-36); Mean Platelet Volume 9.7 fl (7.5-11.0); Monocyte (Absolute #) 0.55 (0.0-1.3); Monocytes % 6.5 % (0.0-12.0); Neutrophil % 67.2 % (36.0-66.0); Platelet Count 218 K/mm3 (150-450); Red Blood Count 5.11 M/mm3 (4.1-5.6); Red Cell Distribution Width 12.6 % (11.5-14.0); White Blood Count 8.5 K/mm3 (4.0-10.5)
[2020-11-30 10:59] LABS: ALKALINE PHOSPHATASE 50 U/L (38-126); AMYLASE 73 U/L (30-110); ANION GAP 15.6 MEQ/L (5-15); BLOOD UREA NITROGEN 19 mg/dL (9-20); CHLORIDE 100 mmol/L (98-107); Calcium 9.7 mg/dL (8.4-10.2); Carbon Dioxide 27 mmol/L (22-30); Creatinine 1 1.03 mg/dL (0.66-1.25); EST GLOMERULAR FILTRATION RATE > 60.0 ML/MIN; Glucose 174 mg/dL (74-106); LIPASE 112 U/L (23-300); Potassium 4.4 mmol/L (3.5-5.1); SGOT/AST 29 U/L (17-59); SGPT/ALT 30 U/L (0-50); SODIUM 138 mmol/L (137-145)
[2020-11-30 11:18] LABS: Appearance SLIGHTLY CLOUDY (CLEAR); Bilirubin NEGATIVE (NEGATIVE); Blood MODERATE Ery/ul (0-5); Glucose NEGATIVE (NEGATIVE); Ketones TRACE (NEGATIVE); Leukocyte Esterase NEGATIVE (NEGATIVE); Mucus SLIGHT /HPF (NEGATIVE); Nitrite NEGATIVE (NEGATIVE); Protein,Urine Dip 30 (Negative); Specific Gravity 1.023 (1.005-1.025); Urobilinogen NEGATIVE mg/dL (0-1)
[2020-11-30 11:20] LABS: Bacteria NONE SEEN /HPF (NEGATIVE)
[2020-11-30 11:30] VITALS: PULSE 70
--- NOTE | 2020-11-30 11:53 | XRAY ---
Exam: CT of the abdomen and pelvis without IV contrast from 11/30/2020. CTDI: 12.39 mGy Comparison: CT of the abdomen and pelvis without IV contrast from 06/17/2015. Indication: 55-year-old male with left flank pain for one day. Findings: Non-IV contrast axial images were obtained through the abdomen and pelvis. No oral contrast was given. Reconstructed coronal and sagittal images were created and reviewed. Findings: The kidneys again reveal multiple bilateral intrarenal calculi. More importantly, there is mild left-sided pyelocaliectasis and hydroureter which appears to be due to an obstructing distal left ureteral calculus measuring about 5.5 mm in diameter on axial images #115 through #117. This is also seen on sagittal image #118 and coronal images #95 through #97. This appears to be just proximal to the left ureterovesical junction. This likely is causing the patient's left flank pain. I see a 5.0 cm in diameter cyst abutting the lateral margin of the upper pole of the right kidney measuring +8.9 Hounsfield units. This cyst is slightly larger than that seen on 06/17/2015 when it measured about 3.8 cm in diameter. No other renal mass is seen. The urinary bladder is almost empty. No gross urinary bladder abnormality is seen. The visualized lung bases appear clear. The transverse heart size is normal. Some distal right coronary artery vascular calcification is seen. Mild diffuse hepatic steatosis is again seen. The liver appears of unremarkable size. No focal hepatic mass or intrahepatic biliary duct distention is seen. Surgical clips consistent with prior cholecystectomy are seen within the right upper quadrant. The spleen appears of unremarkable size and uniform attenuation. The pancreas and adrenal glands appear unremarkable. Atherosclerotic vascular calcification is seen within the abdominal aorta and iliac arteries. No abdominal aortic aneurysm is seen. No abnormal retroperitoneal lymphadenopathy is seen. There is abundant intraperitoneal fat. No free intraperitoneal air or ventral abdominal wall hernia is seen. There is minimal protrusion of intraperitoneal fat into the subcutaneous fat at the level the umbilicus on midline sagittal image #107. This is unchanged. I see no evidence of bowel obstruction. Scattered colonic stool retention is seen. Multiple diverticuli are seen within the splenic flexure, descending colon, and sigmoid colon consistent with diverticulosis. I cannot exclude some mild bowel wall thickening/hypertrophy within the sigmoid colon. In retrospect, I believe this is similar to the prior CT study. No pericolonic stranding or other findings of acute diverticulitis are seen. There appears to be a small cecal diverticulum on axial image #68. No findings of appendicitis are seen. There appears to be some reflux of stool into the terminal ileum. The pelvis reveals no suspicious mass, abnormal pelvic lymphadenopathy, or free intraperitoneal fluid. Again, the urinary bladder is almost empty. The seminal vesicles appear unremarkable. Minimal prostate gland calcification is seen. The prostate gland does not appear enlarged. The inguinal regions appear unremarkable. Faint vascular calcification is seen within the common femoral arteries. The skeleton reveals no acute fracture or aggressive bone lesion. Prominent degenerative changes are seen within the lower thoracic spine and upper lumbar spine. I again note a moderate lower dorsal kyphosis centered at the upper T11 level. There is mild anterior wedging of T10, T11, and T12 representing no change. Some vacuum disc phenomena is seen anteriorly within the lower thoracic spine and upper lumbar spine. Mild posterior facet joint arthropathy is seen within the lower thoracic spine, as well as at the L-1L2 and L2-L3 levels. Impression: 1. There is a 5.5 mm obstructing calculus within the distal left ureter just proximal to the left ureterovesical junction causing left-sided hydroureter and pyelocaliectasis with slight left renal swelling. 2. In addition, there are multiple bilateral nonobstructing intrarenal calculi, as noted before. 3. 5 cm in diameter renal cortical cyst abuts the lateral margin of the upper pole of the right kidney. This cyst appears somewhat larger as compared to 06/17/2015 when it measured about 3.8 cm in diameter. 4. Hepatic steatosis, evidence of prior cholecystectomy, and a normal appendix are seen. 5. Left-sided colon diverticulosis without evidence of acute diverticulitis. There is a suggestion of some mild bowel wall thickening or hypertrophy within the sigmoid colon region. This does not appear to be significantly changed from 06/17/2015. Scattered stool is seen throughout the colon. 6. No other acute process is seen within the abdomen or pelvis. 7. Stable skeletal findings, as discussed above.
[2020-11-30 12:09] VITALS: O2SAT 99
[2020-11-30 12:15] VITALS: BP 137/93
[2020-11-30] MEDS ORDERED: Hydromorphone 1 mg/ml Injection IV ONE (12:15)
[2020-11-30] MEDS ORDERED: Hydromorphone 1 mg/ml Injection ONE (12:20)
== END 2020-11-30 12:43 | disposition home or self-care (01) ==
LOC: ED 10:12
DX: R10.32 Left lower quadrant pain (principal); N20.1 Calculus of ureter; R11.0 Nausea; E11.9 Type 2 diabetes mellitus without complications; I10 Essential (primary) hypertension; Z79.899 Other long term (current) drug therapy; Z87.442 Personal history of urinary calculi
CPT/HCPCS: 36000; 36415; 74176; 80053; 81001; 82150; 83605; 83690; 85025; 96360; 96374; 96375; 99284; J1170; J1885; J2405

== ENCOUNTER 2021-12-13 17:22 | Observation (INO) | payer BC ==
[2021-12-13] MEDS ORDERED: BABY ASPIRIN 81 MG CHEW PO ONE (17:45)
[2021-12-13] MEDS ORDERED: Catapres 0.1 MG PO ONE (17:45)
[2021-12-13] MEDS ORDERED: Catapres 0.1 MG ONE (17:46)
[2021-12-13 17:49] LABS: Absolute Neutrophil Ct (ANC) 3.83 (1.4-6.9); Basophil (Absolute #) 0.04 (0-0.4); Eosinophil % 2.2 % (0.00-5.0); Eosinophil (Absolute #) 0.17 (0-0.5); Hematocrit 41.2 % (42-50); Hemoglobin 14.4 gm/dl (12.5-18.0); Mean Cell Volume 83.7 fl (78-100); Mean Corpuscular Hemoglobin 29.3 pg (26-32); Mean Platelet Volume 9.9 fl (7.5-11.0); Monocyte (Absolute #) 0.52 (0.0-1.3); Monocytes % 6.6 % (0.0-12.0); Neutrophil % 48.7 % (36.0-66.0); Platelet Count 216 K/mm3 (150-450); Red Blood Count 4.92 M/mm3 (4.1-5.6); Red Cell Distribution Width 12.7 % (11.5-14.0); White Blood Count 7.9 K/mm3 (4.0-10.5)
--- NOTE | 2021-12-13 17:51 | ERPHSYRPT ---
- History of Present Illness Historian: patient Exam Limitations: no limitations Patient Subjective Stated Complaint: pt c/o of discomfort in herb chest, herb sides of jaw, radiated to both his shoulders and down both arms to the ends of his fingers and it lasted for approx 15 minutes, the pain has subsided but the pt still feels shaky, pt has also had a headache today Triage Nursing Assessment: Pt brought to the ER by his friend, hypertensive, rates discomfort as 2/10, took blood sugar at home around 1700 and it was 106, pulses normal, skin n/w/d, denies vomiting but was nauseous and tried to vomit, doesn't appear to be in any distress at this time Physician History: 56 yo wm w mid-sternal "chest pressure" which started at 16:30 w radiation to B arms and B neck. Pt was nauseated w the pain but denies vomiting/dyspnea/diaphoresis. He has h/o DM/HTN/Hyperlipidemia/smoked until 7 yrs ago and now vapes. Pt denies cough/fever. Pain at worse 11/14 but now 10/14. Timing/Duration: other (16:30) Activities at Onset: rest Quality: pressure Location: substernal Chest Pain Radiation: neck, arm Severity of Pain-Max: mild Severity of Pain-Current: mild Modifying Factors: Worsens With: antacids, breathing, coughing, defecating, eating, exertion, lying down, morphine, movement, nitroglycerin, oxygen, palpation, rest, aspirin, sitting up, change in position Associated Symptoms: nausea, No vomiting, No palpitations, No heartburn, No abdominal pain, No shortness of breath, No cough, No hurts to breathe, No diaphoresis, No chills, No fever, No fatigue, No weakness, No swelling/lump in chest, No syncope, No rash, No headache, No dizziness, No edema, No back pain Prior Chest Pain/Cardiac Workup: stress test Nitro Today/Relief: no nitro taken today Aspirin Treatment Today: 81 mg x 1 Allergies/Adverse Reactions: No Known Drug Allergies Allergy (Verified 12/13/21 17:34) Home Medications: Metformin HCl 500 mg [Glucophage 500 MG] 1,000 mg PO BIDWM 02/26/14 [History] Lisinopril/Hydrochlorothiazide [Lisinopril-Hctz .5 mg Tab] 10 - 12.5 each PO DAILY 02/21/17 [History] Simvastatin 40 mg PO HS 07/16/20 [History] PANTOPRAZOLE 40 mg Tablet [Protonix 40MG Tablet] 40 mg PO DAILY 11/30/20 [History] Amitriptyline HCl 25 mg [Elavil 25 mg] 25 mg PO HS 12/13/21 [History] Cyanocobalamin 500 Mcg [Vitamin B-12 500 MCG] 500 mcg PO HS 12/13/21 [History] Ergocalciferol (Vitamin D2) [Vitamin D2] 50,000 unit PO Q7D 12/13/21 [History] Meloxicam 15 mg [Meloxicam 15 MG] 15 mg PO DAILY 12/13/21 [History] Multivit-Min/FA/Lycopen/Lutein [Centrum Silver Men Tablet] 1 each PO DAILY 12/13/21 [History] Hx Tetanus, Diphtheria Vaccination/Date Given: No Hx Influenza Vaccination/Date Given: No Hx Pneumococcal Vaccination/Date Given: No Travel Risk - International Travel Have you traveled outside of the country in past 3 weeks: No - Coronavirus Screening Are you exhibiting any of the following symptoms?: No - Vaccine Status Have you recieved a Covid-19 vaccination: Yes [employer]: Ambrx - Vaccination Dates Date of 2cond Vaccination (if applicable): 05/2021 - Review of Systems Constitutional: No Symptoms Eyes: No Symptoms Ears, Nose, & Throat: No Symptoms Respiratory: No Symptoms Cardiac: No Symptoms, Chest Pain Abdominal/Gastrointestinal: No Symptoms, Nausea Genitourinary Symptoms: No Symptoms Musculoskeletal: No Symptoms Skin: No Symptoms Neurological: No Symptoms Psychological: No Symptoms Endocrine: No Symptoms Hematologic/Lymphatic: No Symptoms Immunological/Allergic: No Symptoms - Past Medical History Pertinent Past Medical History: Yes Neurological History: No Pertinent History ENT History: No Pertinent History Cardiac History: Hypertension Respiratory History: No Pertinent History Endocrine Medical History: Diabetes Type II Musculoskeletal History: No Pertinent History GI Medical History: No Pertinent History History: No Pertinent History Psycho-Social History: No Pertinent History Male Reproductive Disorders: No Pertinent History Other Medical History: KIDNEY STONE - Past Surgical History Past Surgical History: Yes Neuro Surgical History: No Pertinent History Cardiac: No Pertinent History Respiratory: No Pertinent History Gastrointestinal: Cholecystectomy Genitourinary: No Pertinent History Musculoskeletal: Orthopedic Surgery Male Surgical History: No Pertinent History Other Surgical History: bone spur in lower right leg - Social History Smoking Status: Former smoker How long have you smoked: 30 Exposure to second hand smoke: No Drug Use: none Patient Lives Alone: No Significant Family History: heart disease - Nursing Vital Signs Nursing Vital Signs: Initial Vital Signs Temperature 98.1 F 12/13/21 17:23 Pulse Rate 82 12/13/21 17:23 Respiratory Rate 23 12/13/21 17:23 Blood Pressure 208/116 12/13/21 17:23 O2 Sat by Pulse Oximetry 99 12/13/21 17:23 Pain Scale Pain Intensity 0 Hypertensive - Physical Exam General Appearance: no apparent distress Eye Exam: PERRL/EOMI, eyes nml inspection Ears, Nose, Throat Exam: normal ENT inspection, TMs normal, pharynx normal, moist mucous membranes Neck Exam: normal inspection, non-tender, supple, full range of motion, No meningismus, No mass, No Brudzinski, No Kernig's Respiratory Exam: normal breath sounds, lungs clear, airway intact, No chest tenderness, No respiratory distress Cardiovascular Exam: regular rate/rhythm, normal heart sounds, normal peripheral pulses, capillary refill <2 sec, No murmur Gastrointestinal/Abdomen Exam: soft, normal bowel sounds, No tenderness Back Exam: normal inspection, normal range of motion Extremity Exam: normal inspection, normal range of motion Neurologic Exam: alert, oriented x 3, cooperative, normal mood/affect, nml cerebellar function, nml station & gait, sensation nml Skin Exam: normal color, warm, dry Lymphatic Exam: No adenopathy SpO2 Interpretation: normal SpO2: 99 O2 Delivery: Room Air - Course EKG Interpreted by Me: RATE (NSR/R82/Normal QT-QTc/No acute ST-Twave changes) - Radiology Exams Chest X-ray Interpretation: Interpreted by me (CXR nothing acute) - CT Exams Chest CT Interpretation: Tele-radiologist Report (CT chest w contrast-No aortic dissection or aneurism/CAD calcifications/Distal esophageal thickening/ALY/thyroid nodule) Ordered Tests: Active Orders 24 hr Category Date Time Status EKG-ER Only STAT Care 12/13/21 17:32 Completed IV Insertion STAT Care 12/13/21 17:32 Completed Heart-Healthy Diet Diet 12/13/21 Breakfast Active CHEST 1 VIEW (PORTABLE) Stat Exams 12/13/21 17:49 Taken CTA CHEST W AND/OR WO [CT] Stat Exams 12/13/21 18:32 Taken CBC W DIFF Stat Lab 12/13/21 17:46 Completed CMP Stat Lab 12/13/21 17:46 Completed D-DIMER QUANTITATIVE Stat Lab 12/13/21 17:46 Completed LIPID PROFILE AM.LAB Lab 12/14/21 04:00 Ordered PROTIME WITH INR Stat Lab 12/13/21 17:46 Completed PTT Stat Lab 12/13/21 17:46 Completed TROPONIN Q3H Lab 12/13/21 17:46 Completed TROPONIN Q3H Lab 12/13/21 20:49 Completed TROPONIN Q3H Lab 12/13/21 23:42 Completed TROPONIN Q3H Lab 12/14/21 03:02 Completed TROPONIN Q3H Lab 12/14/21 05:45 Ordered Medication Summary Generic Name Dose Route Start Last Admin Trade Name Freq PRN Reason Stop Dose Admin Acetaminophen 650 mg 12/13/21 21:55 Acetaminophen 325 Mg Tablet PO 01/12/22 21:54 Q4H PRN PRN PAIN AND/OR FEVER Al Hydrox/Mg Hydrox/Simethicone 30 ml 12/13/21 21:55 Mag Hydrox/Al Hydrox/Simeth 30 Ml Udcup PO 01/12/22 21:54 Q4H PRN PRN INDIGESTION Aspirin 325 mg 12/14/21 10:00 Aspirin 325 Mg Tablet.Ec PO 01/13/22 09:59 DAILY [facility] Enoxaparin Sodium 40 mg 12/14/21 10:00 Enoxaparin Sodium 40 Mg/0.4 Ml Syringe SQ 01/13/22 09:59 DAILY [facility] Insulin Human Lispro 0 unit 12/13/21 21:55 Insulin Lispro 1 Unit SQ 01/12/22 21:54 UD PRN HYPERGLYCEMIA Magnesium Hydroxide 30 - 60 ml 12/13/21 21:55 Magnesium Hydroxide 30 Ml Udcup PO 01/12/22 21:54 QDP PRN CONSTIPATION Nitroglycerin 0.4 mg 12/13/21 21:55 Nitroglycerin 0.4 Mg Tablet Bottle SL 01/12/22 21:54 .Q5MIN PRN CHEST PAIN Ondansetron HCl 4 mg 12/13/21 21:55 Ondansetron Hcl 4 Mg/2 Ml Vial IV 01/12/22 21:54 Q4H PRN PRN NAUSEA/VOMITING Senna/Docusate Sodium 2 udtab 12/13/21 21:55 Senna/Docusate Sodium 1 Udtab Tablet PO 01/12/22 21:54 BID PRN PRN CONSTIPATION Discontinued Medications Generic Name Dose Route Start Last Admin Trade Name Freq PRN Reason Stop Dose Admin Aspirin 324 mg 12/13/21 17:45 12/13/21 17:48 Aspirin 81 Mg Tab.Chew PO 12/13/21 17:46 324 mg STAT ONE Administration Clonidine 0.2 mg 12/13/21 17:45 12/13/21 17:47 Clonidine Hcl 0.1 Mg Tablet PO 12/13/21 17:46 0.2 mg STAT ONE Administration Clonidine Confirm 12/13/21 17:46 Clonidine Hcl 0.1 Mg Tablet Administered 12/13/21 17:47 Dose 0.2 mg .ROUTE .STK-MED ONE Clonidine HCl 0.2 mg 12/13/21 22:00 12/13/21 22:18 Clonidine Hcl 0.2 Mg Patch TOP 01/12/22 21:59 0.2 mg Q7D BECKY Administration Clonidine HCl Confirm 12/13/21 22:04 Clonidine Hcl 0.2 Mg Patch Administered 12/13/21 22:05 Dose 0.2 mg .ROUTE .STK-MED ONE Enalaprilat 1.25 mg 12/13/21 19:35 12/13/21 19:36 Enalaprilat 2.5 Mg Injection IV 12/13/21 19:36 1.25 mg STAT ONE Administration Enalaprilat Confirm 12/13/21 19:35 Enalaprilat 2.5 Mg Injection Administered 12/13/21 19:36 Dose 2.5 mg IV .STK-MED ONE Enalaprilat 1.25 mg 12/13/21 20:38 12/13/21 20:47 Enalaprilat 2.5 Mg Injection IV 12/13/21 20:39 1.25 mg STAT ONE Administration Enalaprilat Confirm 12/13/21 20:40 Enalaprilat 2.5 Mg Injection Administered 12/13/21 20:41 Dose 2.5 mg IV .STK-MED ONE Labetalol HCl 20 mg 12/13/21 21:19 12/13/21 21:23 Labetalol Hcl 20 Mg/4 Ml Disp.Syringe IV 12/13/21 21:20 20 mg STAT ONE Administration Labetalol HCl Confirm 12/13/21 21:22 Labetalol Hcl 20 Mg/4 Ml Disp.Syringe Administered 12/13/21 21:23 Dose 20 mg IV .STK-MED ONE Lab/Rad Data: Laboratory Result Diagrams 12/13/21 17:46 12/13/21 17:46 Laboratory Results 12/13/21 12/13/21 12/13/21 Range/Units 22:11 20:49 17:46 WBC (4.0-10.5) K/mm3 RBC (4.1-5.6) M/mm3 Hgb (12.5-18.0) gm/dl Hct (42-50) % MCV (78-100) fl MCH (26-32) pg MCHC (32-36) g/dl RDW (11.5-14.0) % Plt Count (150-450) K/mm3 MPV (7.5-11.0) fl Gran % (36.0-66.0) % Eos # (Auto) (0-0.5) Absolute Lymphs (auto) (1.0-4.6) Absolute Monos (auto) (0.0-1.3) Lymphocytes % (24.0-44.0) % Monocytes % (0.0-12.0) % Eosinophils % (0.00-5.0) % Basophils % (0.0-0.4) % Absolute Granulocytes (1.4-6.9) Basophils # (0-0.4) PT (9.4-12.5) SECONDS INR (0.8-3.0) APTT (25.1-36.5) SECONDS D-Dimer (215-500) ng/mL Sodium (137-145) mmol/L Potassium (3.5-5.1) mmol/L Chloride (98-107) mmol/L Carbon Dioxide (22-30) mmol/L Anion Gap (5-15) MEQ/L BUN (9-20) mg/dL Creatinine (0.66-1.25) mg/dL Estimated GFR ML/MIN Glucose (74-106) mg/dL Calcium (8.4-10.2) mg/dL Total Bilirubin (0.2-1.3) mg/dL AST (17-59) U/L ALT (0-50) U/L Alkaline Phosphatase (38-126) U/L Troponin I < 0.012 < 0.012 (0.000-0.034) ng/mL Serum Total Protein (6.3-8.2) g/dL Albumin (3.5-5.0) g/dL Influenza Type A Ag NEGATIVE (NEGATIVE) Influenza Type B Ag NEGATIVE (NEGATIVE) RSV (PCR) NEGATIVE (Negative) SARS-CoV-2 (PCR) NEGATIVE (NEGATIVE) 12/13/21 12/13/21 12/13/21 Range/Units 17:46 17:46 17:46 WBC 7.9 (4.0-10.5) K/mm3 RBC 4.92 (4.1-5.6) M/mm3 Hgb 14.4 (12.5-18.0) gm/dl Hct 41.2 L (42-50) % MCV 83.7 (78-100) fl MCH 29.3 (26-32) pg MCHC 35.0 (32-36) g/dl RDW 12.7 (11.5-14.0) % Plt Count 216 (150-450) K/mm3 MPV 9.9 (7.5-11.0) fl Gran % 48.7 (36.0-66.0) % Eos # (Auto) 0.17 (0-0.5) Absolute Lymphs (auto) 3.30 (1.0-4.6) Absolute Monos (auto) 0.52 (0.0-1.3) Lymphocytes % 42.0 (24.0-44.0) % Monocytes % 6.6 (0.0-12.0) % Eosinophils % 2.2 (0.00-5.0) % Basophils % 0.5 (0.0-0.4) % Absolute Granulocytes 3.83 (1.4-6.9) Basophils # 0.04 (0-0.4) PT 10.4 (9.4-12.5) SECONDS INR 0.88 (0.8-3.0) APTT 27.3 (25.1-36.5) SECONDS D-Dimer 245 (215-500) ng/mL Sodium 138 (137-145) mmol/L Potassium 4.2 (3.5-5.1) mmol/L Chloride 101 (98-107) mmol/L Carbon Dioxide 25 (22-30) mmol/L Anion Gap 16.2 H (5-15) MEQ/L BUN 17 (9-20) mg/dL Creatinine 0.97 (0.66-1.25) mg/dL Estimated GFR > 60.0 ML/MIN Glucose 105 (74-106) mg/dL Calcium 10.0 (8.4-10.2) mg/dL Total Bilirubin 0.80 (0.2-1.3) mg/dL AST 28 (17-59) U/L ALT 24 (0-50) U/L Alkaline Phosphatase 58 (38-126) U/L Troponin I (0.000-0.034) ng/mL Serum Total Protein 8.3 H (6.3-8.2) g/dL Albumin 5.3 H (3.5-5.0) g/dL Influenza Type A Ag (NEGATIVE) Influenza Type B Ag (NEGATIVE) RSV (PCR) (Negative) SARS-CoV-2 (PCR) (NEGATIVE) - Progress Progress: improved Progress Note: 12/13/21 21:52 Heart Score4 12/13/21 21:53 ASA 324mg po x1 Clonidine 0.2mg po wo improvement in BP Vasotec 1.25mg IV x2 wo improvement in BP Labetalol 20mg IV w minimal improvement in BP Obs per Dr. Barnett 12/14/21 04:43 Clonidine patch placed w decreasing BP before transfer to floor Counseled pt/family regarding: lab results, diagnosis, need for follow-up, rad results - Departure Departure Disposition: Observation Clinical Impression: Chest pain, Hypertension Condition: Stable Critical Care Time: No
[2021-12-13 17:55] LABS: INR 0.88 (0.8-3.0); PROTIME 10.4 SECONDS (9.4-12.5)
[2021-12-13 17:58] LABS: PTT 27.3 SECONDS (25.1-36.5)
[2021-12-13 17:59] LABS: ALBUMIN 5.3 g/dL (3.5-5.0); ALKALINE PHOSPHATASE 58 U/L (38-126); ANION GAP 16.2 MEQ/L (5-15); BLOOD UREA NITROGEN 17 mg/dL (9-20); CHLORIDE 101 mmol/L (98-107); Carbon Dioxide 25 mmol/L (22-30); Creatinine 1 0.97 mg/dL (0.66-1.25); EST GLOMERULAR FILTRATION RATE > 60.0 ML/MIN; Glucose 105 mg/dL (74-106); Potassium 4.2 mmol/L (3.5-5.1); SGOT/AST 28 U/L (17-59); SGPT/ALT 24 U/L (0-50); SODIUM 138 mmol/L (137-145); Total Protein 8.3 g/dL (6.3-8.2)
[2021-12-13] MEDS ORDERED: VASOTEC I.V. 2.5 MG IV ONE ×4 (19:35→20:40)
[2021-12-13] MEDS ORDERED: TRANDATE 20 MG/4 ML SYRINGE IV ONE ×2 (21:19→21:22)
[2021-12-13] MEDS ORDERED: MILK OF MAGNESIA 30 ML PO PRN (21:55)
[2021-12-13] MEDS ORDERED: Senokot-S Tablet PO PRN (21:55)
[2021-12-13] MEDS ORDERED: Zofran 4 MG/2 ML VIAL IV PRN (21:55)
[2021-12-13] MEDS ORDERED: MAALOX ES 30 ML UNIT DOSE PO PRN (21:55)
[2021-12-13] MEDS ORDERED: TYLENOL 325 MG PO PRN (21:55)
[2021-12-13] MEDS ORDERED: HUMALOG SQ PRN (21:55)
[2021-12-13] MEDS ORDERED: Nitrostat 0.4 MG Tablet SL PRN (21:55)
[2021-12-13] MEDS ORDERED: Catapres TTS-2 PATCH TOP SCH (22:00)
[2021-12-13] MEDS ORDERED: Catapres TTS-2 PATCH ONE (22:04)
[2021-12-13 22:53] LABS: INFLUENZA A NEGATIVE (NEGATIVE); INFLUENZA B NEGATIVE (NEGATIVE); RESPIRATORY SYNCTIAL VIRUS NEGATIVE (Negative); SARS-CoV-2 Xpert Express NEGATIVE (NEGATIVE)
[2021-12-14 06:41] LABS: Risk Ratio 4.9
--- NOTE | 2021-12-14 07:11 | XRAY ---
Indication: Chest pain. Aortic dissection. Conventional contrast enhanced CTA chest performed using 100 cc Isovue 370 contrast. Two-dimensional sagittal and coronal reformatted images obtained. Additional 3-dimensional reformatted images obtained using a separate workstation. Comparison: February 26, 2014. Aorta demonstrates very minimal arteriosclerotic calcifications at the level of the arch and diaphragm. No aneurysm/dissection. Normal widely patent branch right brachiocephalic, left common carotid, and left subclavian arteries. Heart not enlarged with mildly prominent epicardiac fat. No central pulmonary embolus. Lungs are inflated with stable right middle lobe noncalcified micronodule favored to be benign given stability over the years. No new pulmonary mass, nodule, infiltrate, or effusion. Bony thorax intact again with mild/moderate degenerative changes throughout the spine. Stable mild multilevel anterior wedging deformities of the lower thoracic spine. Limited upper abdomen again demonstrates fatty liver. Interval enlarging 5.3 cm right mid renal exophytic cyst. Impression: 1. Negative for aortic aneurysm/dissection. Very minimal arteriosclerotic calcifications. 2. No new/acute cardiopulmonary abnormalities. 3. Again chronic findings including benign right middle lobe noncalcified micronodule, chronic bony findings, fatty liver, and right renal cyst. Comment: Preliminary interpretation may by C. No critical discrepancy.
--- NOTE | 2021-12-14 07:14 | XRAY ---
Indication: Chest pain. Comparison: May 30, 2021. Portable apical lordotic chest remains clear. Heart and mediastinal structures within normal limits. Bony thorax intact with mild degenerative changes. No new/acute findings.
[2021-12-14 08:16] VITALS: BP 148/76; PULSE 64; O2SAT 97
--- NOTE | 2021-12-14 09:51 | PCM.SSS ---
History of Present Illness - Chief Complaint Chief Complaint: Chest pain, hypertensive urgency History of Present Illness: is a 56 year old male with Hx HTN, DM2 ,HLD and GERD ,is a patient of Dr Armas who presented to ER with chest pressure pain that radiated to neck and left arm. States he was very anxious about this due to his father had triple bypass age 53yrs and brother had bypass age 44 yrs. Patient reports a negative Stress test MAY 2020.Chest pressure has resolved . Troponin series all WNL. Patient would like to see Dr Rodriguez since this is his brother's Inside Sales Supervisor. B /P is 148/76 this morning. I spoke with Dr Rodriguez and he recommends starting ptn on Bystolic 5mg. Patient will have CCS and see Dr Lau and Dr Rodriguez this coming week. Will avoid any stressful situations and go to ER if any recurrence of symptoms. - Review of Systems Constitutional: No Symptoms Eyes: No Symptoms Ears, Nose, & Throat: No Symptoms Respiratory: No Symptoms Cardiac: Chest Pain (resolved) Abdominal/Gastrointestinal: Other (gas and GERD-chronic problem) Genitourinary Symptoms: No Symptoms Musculoskeletal: No Symptoms Skin: No Symptoms Neurological: No Symptoms Psychological: No Symptoms Endocrine: Other (DM2 on Metformin states controlled) Medications & Allergies Home Medications: Home Medication List Metformin HCl 500 mg [Glucophage 500 MG] 1,000 mg PO BIDWM 02/26/14 [History Confirmed 12/13/21] Lisinopril/Hydrochlorothiazide [Lisinopril-Hctz 20-12.5 mg Tab] 10 - 12.5 each PO DAILY 02/21/17 [History Confirmed 12/13/21] Simvastatin 40 mg PO HS 07/16/20 [History Confirmed 12/13/21] Aspirin 81 mg PO DAILY #0 07/26/20 [Rx Confirmed 12/13/21] PANTOPRAZOLE 40 mg Tablet [Protonix 40MG Tablet] 40 mg PO DAILY 11/30/20 [History Confirmed 12/13/21] Amitriptyline HCl 25 mg [Elavil 25 mg] 25 mg PO HS 12/13/21 [History Confirmed 12/13/21] Cyanocobalamin 500 Mcg [Vitamin B-12 500 MCG] 500 mcg PO HS 12/13/21 [History Confirmed 12/13/21] Ergocalciferol (Vitamin D2) [Vitamin D2] 50,000 unit PO Q7D 12/13/21 [History Confirmed 12/13/21] Meloxicam 15 mg [Meloxicam 15 MG] 15 mg PO DAILY 12/13/21 [History Confirmed 12/13/21] Multivit-Min/FA/Lycopen/Lutein [Centrum Silver Men Tablet] 1 each PO DAILY 08/26 [History Confirmed 12/13/21] Nebivolol HCl 5 MG [Bystolic 5 MG] 5 mg PO DAILY #30 tablet 12/14/21 [Rx] Allergies/Adverse Reactions: Allergies Allergy/AdvReac Type Severity Reaction Status Date / Time No Known Drug Allergies Allergy Verified 12/13/21 17:34 - Past Medical History Past Medical History: Yes Neurological History: No Pertinent History ENT History: No Pertinent History Cardiac History: Hypertension Respiratory History: No Pertinent History Endocrine Medical History: Diabetes Type II Musculoskelatal History: No Pertinent History GI Medical History: No Pertinent History History: No Pertinent History Pyscho-Social History: No Pertinent History Male Reproductive Disorders: No Pertinent History Comment: KIDNEY STONE - Past Surgical History Past Surgical History: Yes Neuro Surgical History: No Pertinent History Cardiac History: No Pertinent History Respiratory Surgery: No Pertinent History GI Surgical History: Cholecystectomy Genitourinary Surgical Hx: No Pertinent History Musculskeletal Surgical Hx: Orthopedic Surgery Male Surgical History: No Pertinent History Other Surgical History: bone spur in lower right leg - Social History Smoking Status: Former smoker How long have you smoked: 30 Exposure to second hand smoke: No Alcohol: None Drug Use: none Significant Family History: heart disease - Physical Exam Vital Signs: Vital Signs - 24 hr Temp Pulse Pulse Resp BP Pulse Ox 12/14/21 08:00 97.3 F 64 19 148/76 97 12/14/21 04:45 99 12/14/21 04:03 97.1 F 58 L 17 125/61 97 12/13/21 23:53 98.4 F 60 18 139/75 98 12/13/21 23:50 98.4 F 60 18 139/75 98 12/13/21 22:32 70 16 158/95 99 12/13/21 21:36 70 14 156/97 96 12/13/21 21:11 73 165/102 95 12/13/21 20:03 75 17 168/103 97 12/13/21 19:17 62 15 184/108 97 12/13/21 18:24 79 15 182/116 98 12/13/21 17:23 98.1 F 82 81 23 208/116 99 General Appearance: no apparent distress Neurologic Exam: alert, oriented x 3, cooperative, normal mood/affect, nml cereb ellar function, nml station & gait Eye Exam: eyes nml inspection Ears, Nose, Throat Exam: normal ENT inspection Neck Exam: normal inspection Respiratory Exam: normal breath sounds Cardiovascular Exam: bradycardia (60 regular) Gastrointestinal/Abdomen Exam: soft, normal bowel sounds (nontender) Back Exam: normal inspection Extremity Exam: normal inspection Results - Labs Lab/Micro Results: Lab Results-Last 24 Hours 12/13/21 12/13/21 12/13/21 Range/Units 17:46 17:46 17:46 WBC 7.9 (4.0-10.5) K/mm3 RBC 4.92 (4.1-5.6) M/mm3 Hgb 14.4 (12.5-18.0) gm/dl Hct 41.2 L (42-50) % MCV 83.7 (78-100) fl MCH 29.3 (26-32) pg MCHC 35.0 (32-36) g/dl RDW 12.7 (11.5-14.0) % Plt Count 216 (150-450) K/mm3 MPV 9.9 (7.5-11.0) fl Gran % 48.7 (36.0-66.0) % Eos # (Auto) 0.17 (0-0.5) Absolute Lymphs (auto) 3.30 (1.0-4.6) Absolute Monos (auto) 0.52 (0.0-1.3) Lymphocytes % 42.0 (24.0-44.0) % Monocytes % 6.6 (0.0-12.0) % Eosinophils % 2.2 (0.00-5.0) % Basophils % 0.5 (0.0-0.4) % Absolute Granulocytes 3.83 (1.4-6.9) Basophils # 0.04 (0-0.4) PT 10.4 (9.4-12.5) SECONDS INR 0.88 (0.8-3.0) APTT 27.3 (25.1-36.5) SECONDS D-Dimer 245 (215-500) ng/mL Sodium 138 (137-145) mmol/L Potassium 4.2 (3.5-5.1) mmol/L Chloride 101 (98-107) mmol/L Carbon Dioxide 25 (22-30) mmol/L Anion Gap 16.2 H (5-15) MEQ/L BUN 17 (9-20) mg/dL Creatinine 0.97 (0.66-1.25) mg/dL Estimated GFR > 60.0 ML/MIN Glucose 105 (74-106) mg/dL POC Glucometer (74 to 106) mg/dL Calcium 10.0 (8.4-10.2) mg/dL Total Bilirubin 0.80 (0.2-1.3) mg/dL AST 28 (17-59) U/L ALT 24 (0-50) U/L Alkaline Phosphatase 58 (38-126) U/L Troponin I (0.000-0.034) ng/mL Serum Total Protein 8.3 H (6.3-8.2) g/dL Albumin 5.3 H (3.5-5.0) g/dL Triglycerides (30-150) mg/dL Cholesterol (50-200) mg/dL LDL Cholesterol (30-100) mg/dL HDL Cholesterol (40-60) mg/dL Heart Disease Risk Ratio Influenza Type A Ag (NEGATIVE) Influenza Type B Ag (NEGATIVE) RSV (PCR) (Negative) SARS-CoV-2 (PCR) (NEGATIVE) 12/13/21 12/13/21 12/13/21 Range/Units 17:46 20:49 22:11 WBC (4.0-10.5) K/mm3 RBC (4.1-5.6) M/mm3 Hgb (12.5-18.0) gm/dl Hct (42-50) % MCV (78-100) fl MCH (26-32) pg MCHC (32-36) g/dl RDW (11.5-14.0) % Plt Count (150-450) K/mm3 MPV (7.5-11.0) fl Gran % (36.0-66.0) % Eos # (Auto) (0-0.5) Absolute Lymphs (auto) (1.0-4.6) Absolute Monos (auto) (0.0-1.3) Lymphocytes % (24.0-44.0) % Monocytes % (0.0-12.0) % Eosinophils % (0.00-5.0) % Basophils % (0.0-0.4) % Absolute Granulocytes (1.4-6.9) Basophils # (0-0.4) PT (9.4-12.5) SECONDS INR (0.8-3.0) APTT (25.1-36.5) SECONDS D-Dimer (215-500) ng/mL Sodium (137-145) mmol/L Potassium (3.5-5.1) mmol/L Chloride (98-107) mmol/L Carbon Dioxide (22-30) mmol/L Anion Gap (5-15) MEQ/L BUN (9-20) mg/dL Creatinine (0.66-1.25) mg/dL Estimated GFR ML/MIN Glucose (74-106) mg/dL POC Glucometer (74 to 106) mg/dL Calcium (8.4-10.2) mg/dL Total Bilirubin (0.2-1.3) mg/dL AST (17-59) U/L ALT (0-50) U/L Alkaline Phosphatase (38-126) U/L Troponin I < 0.012 < 0.012 (0.000-0.034) ng/mL Serum Total Protein (6.3-8.2) g/dL Albumin (3.5-5.0) g/dL Triglycerides (30-150) mg/dL Cholesterol (50-200) mg/dL LDL Cholesterol (30-100) mg/dL HDL Cholesterol (40-60) mg/dL Heart Disease Risk Ratio Influenza Type A Ag NEGATIVE (NEGATIVE) Influenza Type B Ag NEGATIVE (NEGATIVE) RSV (PCR) NEGATIVE (Negative) SARS-CoV-2 (PCR) NEGATIVE (NEGATIVE) 12/13/21 12/14/21 12/14/21 Range/Units 23:42 03:02 05:25 WBC (4.0-10.5) K/mm3 RBC (4.1-5.6) M/mm3 Hgb (12.5-18.0) gm/dl Hct (42-50) % MCV (78-100) fl MCH (26-32) pg MCHC (32-36) g/dl RDW (11.5-14.0) % Plt Count (150-450) K/mm3 MPV (7.5-11.0) fl Gran % (36.0-66.0) % Eos # (Auto) (0-0.5) Absolute Lymphs (auto) (1.0-4.6) Absolute Monos (auto) (0.0-1.3) Lymphocytes % (24.0-44.0) % Monocytes % (0.0-12.0) % Eosinophils % (0.00-5.0) % Basophils % (0.0-0.4) % Absolute Granulocytes (1.4-6.9) Basophils # (0-0.4) PT (9.4-12.5) SECONDS INR (0.8-3.0) APTT (25.1-36.5) SECONDS D-Dimer (215-500) ng/mL Sodium (137-145) mmol/L Potassium (3.5-5.1) mmol/L Chloride (98-107) mmol/L Carbon Dioxide (22-30) mmol/L Anion Gap (5-15) MEQ/L BUN (9-20) mg/dL Creatinine (0.66-1.25) mg/dL Estimated GFR ML/MIN Glucose (74-106) mg/dL POC Glucometer (74 to 106) mg/dL Calcium (8.4-10.2) mg/dL Total Bilirubin (0.2-1.3) mg/dL AST (17-59) U/L ALT (0-50) U/L Alkaline Phosphatase (38-126) U/L Troponin I < 0.012 < 0.012 < 0.012 (0.000-0.034) ng/mL Serum Total Protein (6.3-8.2) g/dL Albumin (3.5-5.0) g/dL Triglycerides (30-150) mg/dL Cholesterol (50-200) mg/dL LDL Cholesterol (30-100) mg/dL HDL Cholesterol (40-60) mg/dL Heart Disease Risk Ratio Influenza Type A Ag (NEGATIVE) Influenza Type B Ag (NEGATIVE) RSV (PCR) (Negative) SARS-CoV-2 (PCR) (NEGATIVE) 12/14/21 12/14/21 Range/Units 05:25 07:38 WBC (4.0-10.5) K/mm3 RBC (4.1-5.6) M/mm3 Hgb (12.5-18.0) gm/dl Hct (42-50) % MCV (78-100) fl MCH (26-32) pg MCHC (32-36) g/dl RDW (11.5-14.0) % Plt Count (150-450) K/mm3 MPV (7.5-11.0) fl Gran % (36.0-66.0) % Eos # (Auto) (0-0.5) Absolute Lymphs (auto) (1.0-4.6) Absolute Monos (auto) (0.0-1.3) Lymphocytes % (24.0-44.0) % Monocytes % (0.0-12.0) % Eosinophils % (0.00-5.0) % Basophils % (0.0-0.4) % Absolute Granulocytes (1.4-6.9) Basophils # (0-0.4) PT (9.4-12.5) SECONDS INR (0.8-3.0) APTT (25.1-36.5) SECONDS D-Dimer (215-500) ng/mL Sodium (137-145) mmol/L Potassium (3.5-5.1) mmol/L Chloride (98-107) mmol/L Carbon Dioxide (22-30) mmol/L Anion Gap (5-15) MEQ/L BUN (9-20) mg/dL Creatinine (0.66-1.25) mg/dL Estimated GFR ML/MIN Glucose (74-106) mg/dL POC Glucometer 145 H (74 to 106) mg/dL Calcium (8.4-10.2) mg/dL Total Bilirubin (0.2-1.3) mg/dL AST (17-59) U/L ALT (0-50) U/L Alkaline Phosphatase (38-126) U/L Troponin I (0.000-0.034) ng/mL Serum Total Protein (6.3-8.2) g/dL Albumin (3.5-5.0) g/dL Triglycerides 293 H (30-150) mg/dL Cholesterol 172 (50-200) mg/dL LDL Cholesterol 103 H (30-100) mg/dL HDL Cholesterol 35 L (40-60) mg/dL Heart Disease Risk Ratio 4.9 Influenza Type A Ag (NEGATIVE) Influenza Type B Ag (NEGATIVE) RSV (PCR) (Negative) SARS-CoV-2 (PCR) (NEGATIVE) Accuchecks Date 12/14/21 Time 07:35 - Radiology Impressions Radiology Exams & Impressions: Radiology Procedures Category Date Time Status CHEST 1 VIEW (PORTABLE) Stat Exams 12/13/21 17:49 Completed CTA CHEST W AND/OR WO [CT] Stat Exams 12/13/21 18:32 Completed - Other Procedures and Tests Respiratory Therapy 12/15/21 05:00 EKG DAILY 12/16/21 05:00 EKG DAILY 12/17/21 05:00 EKG DAILY Assessment/Plan (1) Chest pain Current Visit: Yes Status: Resolved Qualifiers: Chest pain type: unspecified Qualified Code(s): R07.9 - Chest pain, unsp ecified Assessment & Plan: Will see Inside Sales Supervisor Dr Rodriguez who also sees ptn's brother for CAD Code(s): R07.9 - CHEST PAIN, UNSPECIFIED (2) Hypertension Current Visit: Yes Status: Acute Assessment & Plan: start Bystolic per Dr Rodriguez Code(s): I10 - ESSENTIAL (PRIMARY) HYPERTENSION (3) Dyspepsia Current Visit: Yes Status: Chronic Assessment & Plan: avoid cows milk and red meat Code(s): R10.13 - EPIGASTRIC PAIN Hospital Summary - Hospital Course Hospital Course: see discussion in HPI - Vitals & Intake/Output Vital Signs: Vital Signs Temperature 97.3 F 12/14/21 08:00 Pulse Rate 64 12/14/21 08:00 Respiratory Rate 19 12/14/21 08:00 Blood Pressure 148/76 12/14/21 08:00 O2 Sat by Pulse Oximetry 97 12/14/21 08:00 Intake & Output: Intake & Output 12/11/21 12/12/21 12/13/21 12/14/21 11:59 11:59 11:59 11:59 Intake Total 400 Output Total 100 Balance 300 Weight 101.8 kg - Lab Result Diagrams: 12/13/21 17:46 12/13/21 17:46 Lab Results-Last 24 Hrs: Lab Results-Last 24 Hours 12/13/21 12/13/21 12/13/21 Range/Units 17:46 17:46 17:46 WBC 7.9 (4.0-10.5) K/mm3 RBC 4.92 (4.1-5.6) M/mm3 Hgb 14.4 (12.5-18.0) gm/dl Hct 41.2 L (42-50) % MCV 83.7 (78-100) fl MCH 29.3 (26-32) pg MCHC 35.0 (32-36) g/dl RDW 12.7 (11.5-14.0) % Plt Count 216 (150-450) K/mm3 MPV 9.9 (7.5-11.0) fl Gran % 48.7 (36.0-66.0) % Eos # (Auto) 0.17 (0-0.5) Absolute Lymphs (auto) 3.30 (1.0-4.6) Absolute Monos (auto) 0.52 (0.0-1.3) Lymphocytes % 42.0 (24.0-44.0) % Monocytes % 6.6 (0.0-12.0) % Eosinophils % 2.2 (0.00-5.0) % Basophils % 0.5 (0.0-0.4) % Absolute Granulocytes 3.83 (1.4-6.9) Basophils # 0.04 (0-0.4) PT 10.4 (9.4-12.5) SECONDS INR 0.88 (0.8-3.0) APTT 27.3 (25.1-36.5) SECONDS D-Dimer 245 (215-500) ng/mL Sodium 138 (137-145) mmol/L Potassium 4.2 (3.5-5.1) mmol/L Chloride 101 (98-107) mmol/L Carbon Dioxide 25 (22-30) mmol/L Anion Gap 16.2 H (5-15) MEQ/L BUN 17 (9-20) mg/dL Creatinine 0.97 (0.66-1.25) mg/dL Estimated GFR > 60.0 ML/MIN Glucose 105 (74-106) mg/dL POC Glucometer (74 to 106) mg/dL Calcium 10.0 (8.4-10.2) mg/dL Total Bilirubin 0.80 (0.2-1.3) mg/dL AST 28 (17-59) U/L ALT 24 (0-50) U/L Alkaline Phosphatase 58 (38-126) U/L Troponin I (0.000-0.034) ng/mL Serum Total Protein 8.3 H (6.3-8.2) g/dL Albumin 5.3 H (3.5-5.0) g/dL Triglycerides (30-150) mg/dL Cholesterol (50-200) mg/dL LDL Cholesterol (30-100) mg/dL HDL Cholesterol (40-60) mg/dL Heart Disease Risk Ratio Influenza Type A Ag (NEGATIVE) Influenza Type B Ag (NEGATIVE) RSV (PCR) (Negative) SARS-CoV-2 (PCR) (NEGATIVE) 12/13/21 12/13/21 12/13/21 Range/Units 17:46 20:49 22:11 WBC (4.0-10.5) K/mm3 RBC (4.1-5.6) M/mm3 Hgb (12.5-18.0) gm/dl Hct (42-50) % MCV (78-100) fl MCH (26-32) pg MCHC (32-36) g/dl RDW (11.5-14.0) % Plt Count (150-450) K/mm3 MPV (7.5-11.0) fl Gran % (36.0-66.0) % Eos # (Auto) (0-0.5) Absolute Lymphs (auto) (1.0-4.6) Absolute Monos (auto) (0.0-1.3) Lymphocytes % (24.0-44.0) % Monocytes % (0.0-12.0) % Eosinophils % (0.00-5.0) % Basophils % (0.0-0.4) % Absolute Granulocytes (1.4-6.9) Basophils # (0-0.4) PT (9.4-12.5) SECONDS INR (0.8-3.0) APTT (25.1-36.5) SECONDS D-Dimer (215-500) ng/mL Sodium (137-145) mmol/L Potassium (3.5-5.1) mmol/L Chloride (98-107) mmol/L Carbon Dioxide (22-30) mmol/L Anion Gap (5-15) MEQ/L BUN (9-20) mg/dL Creatinine (0.66-1.25) mg/dL Estimated GFR ML/MIN Glucose (74-106) mg/dL POC Glucometer (74 to 106) mg/dL Calcium (8.4-10.2) mg/dL Total Bilirubin (0.2-1.3) mg/dL AST (17-59) U/L ALT (0-50) U/L Alkaline Phosphatase (38-126) U/L Troponin I < 0.012 < 0.012 (0.000-0.034) ng/mL Serum Total Protein (6.3-8.2) g/dL Albumin (3.5-5.0) g/dL Triglycerides (30-150) mg/dL Cholesterol (50-200) mg/dL LDL Cholesterol (30-100) mg/dL HDL Cholesterol (40-60) mg/dL Heart Disease Risk Ratio Influenza Type A Ag NEGATIVE (NEGATIVE) Influenza Type B Ag NEGATIVE (NEGATIVE) RSV (PCR) NEGATIVE (Negative) SARS-CoV-2 (PCR) NEGATIVE (NEGATIVE) 12/13/21 12/14/21 12/14/21 Range/Units 23:42 03:02 05:25 WBC (4.0-10.5) K/mm3 RBC (4.1-5.6) M/mm3 Hgb (12.5-18.0) gm/dl Hct (42-50) % MCV (78-100) fl MCH (26-32) pg MCHC (32-36) g/dl RDW (11.5-14.0) % Plt Count (150-450) K/mm3 MPV (7.5-11.0) fl Gran % (36.0-66.0) % Eos # (Auto) (0-0.5) Absolute Lymphs (auto) (1.0-4.6) Absolute Monos (auto) (0.0-1.3) Lymphocytes % (24.0-44.0) % Monocytes % (0.0-12.0) % Eosinophils % (0.00-5.0) % Basophils % (0.0-0.4) % Absolute Granulocytes (1.4-6.9) Basophils # (0-0.4) PT (9.4-12.5) SECONDS INR (0.8-3.0) APTT (25.1-36.5) SECONDS D-Dimer (215-500) ng/mL Sodium (137-145) mmol/L Potassium (3.5-5.1) mmol/L Chloride (98-107) mmol/L Carbon Dioxide (22-30) mmol/L Anion Gap (5-15) MEQ/L BUN (9-20) mg/dL Creatinine (0.66-1.25) mg/dL Estimated GFR ML/MIN Glucose (74-106) mg/dL POC Glucometer (74 to 106) mg/dL Calcium (8.4-10.2) mg/dL Total Bilirubin (0.2-1.3) mg/dL AST (17-59) U/L ALT (0-50) U/L Alkaline Phosphatase (38-126) U/L Troponin I < 0.012 < 0.012 < 0.012 (0.000-0.034) ng/mL Serum Total Protein (6.3-8.2) g/dL Albumin (3.5-5.0) g/dL Triglycerides (30-150) mg/dL Cholesterol (50-200) mg/dL LDL Cholesterol (30-100) mg/dL HDL Cholesterol (40-60) mg/dL Heart Disease Risk Ratio Influenza Type A Ag (NEGATIVE) Influenza Type B Ag (NEGATIVE) RSV (PCR) (Negative) SARS-CoV-2 (PCR) (NEGATIVE) 12/14/21 12/14/21 Range/Units 05:25 07:38 WBC (4.0-10.5) K/mm3 RBC (4.1-5.6) M/mm3 Hgb (12.5-18.0) gm/dl Hct (42-50) % MCV (78-100) fl MCH (26-32) pg MCHC (32-36) g/dl RDW (11.5-14.0) % Plt Count (150-450) K/mm3 MPV (7.5-11.0) fl Gran % (36.0-66.0) % Eos # (Auto) (0-0.5) Absolute Lymphs (auto) (1.0-4.6) Absolute Monos (auto) (0.0-1.3) Lymphocytes % (24.0-44.0) % Monocytes % (0.0-12.0) % Eosinophils % (0.00-5.0) % Basophils % (0.0-0.4) % Absolute Granulocytes (1.4-6.9) Basophils # (0-0.4) PT (9.4-12.5) SECONDS INR (0.8-3.0) APTT (25.1-36.5) SECONDS D-Dimer (215-500) ng/mL Sodium (137-145) mmol/L Potassium (3.5-5.1) mmol/L Chloride (98-107) mmol/L Carbon Dioxide (22-30) mmol/L Anion Gap (5-15) MEQ/L BUN (9-20) mg/dL Creatinine (0.66-1.25) mg/dL Estimated GFR ML/MIN Glucose (74-106) mg/dL POC Glucometer 145 H (74 to 106) mg/dL Calcium (8.4-10.2) mg/dL Total Bilirubin (0.2-1.3) mg/dL AST (17-59) U/L ALT (0-50) U/L Alkaline Phosphatase (38-126) U/L Troponin I (0.000-0.034) ng/mL Serum Total Protein (6.3-8.2) g/dL Albumin (3.5-5.0) g/dL Triglycerides 293 H (30-150) mg/dL Cholesterol 172 (50-200) mg/dL LDL Cholesterol 103 H (30-100) mg/dL HDL Cholesterol 35 L (40-60) mg/dL Heart Disease Risk Ratio 4.9 Influenza Type A Ag (NEGATIVE) Influenza Type B Ag (NEGATIVE) RSV (PCR) (Negative) SARS-CoV-2 (PCR) (NEGATIVE) Micro Results-Entire Visit: Accuchecks Date 12/14/21 Time 07:35 - Radiology Exams Ordered Rad Exams-Entire Visit: Radiology Procedures Category Date Time Status CHEST 1 VIEW (PORTABLE) Stat Exams 12/13/21 17:49 Completed CTA CHEST W AND/OR WO [CT] Stat Exams 12/13/21 18:32 Completed - Procedures and Test Procedures and Tests throughout Hospitalization: Therapy Orders & Screens 12/13/21 21:55 EKG [id number],QAMX3,PRN Comment: 12/14/21 01:32 EKG ROUTINE Comment: Diagnosis: Chest pain rule out ACS 12/15/21 05:00 EKG DAILY Comment: Diagnosis: Chest pain rule out ACS 12/16/21 05:00 EKG DAILY Comment: Diagnosis: Chest pain rule out ACS 12/17/21 05:00 EKG DAILY Comment: Diagnosis: Chest pain rule out ACS - Discharge Disposition: Home, Self-Care Condition: Good Prescriptions: New Nebivolol HCl 5 MG [Bystolic 5 MG] 5 mg PO DAILY #30 tablet Continue Metformin HCl 500 mg [Glucophage 500 MG] 1,000 mg PO BIDWM Lisinopril/Hydrochlorothiazide [Lisinopril-Hctz 20-12.5 mg Tab] 10 - 12.5 each PO DAILY Simvastatin 40 mg PO HS Aspirin 81 mg PO DAILY #0 PANTOPRAZOLE 40 mg Tablet [Protonix 40MG Tablet] 40 mg PO DAILY Meloxicam 15 mg [Meloxicam 15 MG] 15 mg PO DAILY Amitriptyline HCl 25 mg [Elavil 25 mg] 25 mg PO HS Cyanocobalamin 500 Mcg [Vitamin B-12 500 MCG] 500 mcg PO HS Ergocalciferol (Vitamin D2) [Vitamin D2] 50,000 unit PO Q7D Multivit-Min/FA/Lycopen/Lutein [Centrum Silver Men Tablet] 1 each PO DAILY Instructions: High Blood Pressure (DC) Additional Instructions: CHECK BP THREE TIMES A DAY AND KEEP RECORD CORONARY CALCIUM SCORE TEST IS SCHEDULED FOR Thursday12/17/21 AT 9:00 AM Follow up with: TIFFANIE RODRIGUEZ [ACTIVE STAFF] - Call for Appointment NERIS SCHAEFER [Primary Care Provider] - Call for Appointment
[2021-12-14] MEDS ORDERED: ENOXAPARIN SODIUM SQ SCH (10:00)
[2021-12-14] MEDS ORDERED: Ecotrin 325 MG PO SCH (10:00)
[2021-12-14 10:14] LABS: NT PRO BNP 43.5 pg/mL (0-900)
[2021-12-14 10:35] LABS: T4 (Thyroxine) 7.49 ug/dL (5.53-10.96); TSH, 3RD Generation 2.67 mIU/L (0.47-4.68)
== END 2021-12-14 11:01 | disposition home or self-care (01) ==
LOC: ED 17:22 → MED SURG 23:20
PROVIDERS: ADMIT Family Medicine; ATTEND Family Medicine
DX: R07.9 Chest pain, unspecified (principal); I10 Essential (primary) hypertension; R10.13 Epigastric pain; E11.9 Type 2 diabetes mellitus without complications; E78.5 Hyperlipidemia, unspecified; Z79.899 Other long term (current) drug therapy; Z20.828 Contact with and (suspected) exposure to other viral communicable diseases
CPT/HCPCS: 0241U; 36000; 36415; 71045; 71275; 80053; 80061; 82947; 83036; 83721; 83880; 84436; 84443; 84484; 85025; 85379; 85610; 85730; 93005; 93268; 96374; 96375; 96376; 99285; G0378; 71260; A9270-GY